=== PATIENT | male | born 1955 | race Caucasian/White ===

== ENCOUNTER 2021-07-10 06:37 | Inpatient (IN) | payer MEDICARE, OTHER ==
[~2021-07-10] VITALS: Ht 188 cm; Wt 90.3 kg
[2021-07-10] VITALS (25 sets, daily range): BP systolic 70–119; BP diastolic 50–85
[~2021-07-10 06:37] MED LIST: AMIO200T6 PO; ASPI81TA50 PO; ATORVASTATIN CA80 MG PO; CHOL100013 PO; DIGO125T3 PO; FURO40TA4 PO; LOSA-73 PO; METO100T5 PO; OMEP20CA16 PO; PRAS10TA9 PO; SACU1TAB4 PO; SERT-268 PO; SPIR25TA5 PO
[2021-07-10] MEDS ORDERED: POLYVINYL ALCOHOL 1.4% OPHTH SOLUTION 15ML BOTTLE. OU PRN (09:15)
[2021-07-10 09:32] LABS: BASE EXCESS COOX -8 mmol/L (-3-3); HCO3 COOX 20 mmol/L (21-28); METHEMOGLOBIN 0.2 % (0.0-1.9); OXYHEMOGLOBIN 95.7 %; PCO2 COOX 50 mmHg (35-46); PO2 COOX 102 mmHg (65-108); SAT O2 COOX 96 % (92-99)
[2021-07-10] MEDS: MIDAZOLAM 100mg/100ml NS BAG 100 ML IV PRN ×2 (09:47→16:51)
--- NOTE | 2021-07-10 09:49 | RAD ---
XR CHEST 1V History: Reason: ETT PLACEMENT / Spl. Instructions: / History: Comparison: June 24, 2021 Findings: Increased diffuse pulmonary opacities with interstitial thickening. Layering bilateral pleural effusi ons. Enlarged cardiac size. No pneumothorax. Endotracheal tube 4.5 cm above the andrae. Enteric tube with tip below the diaphragm beyond the image . Left-sided pacemaker/ICD. Impression: 1. Increased diffuse pulmonary opacities with interstitial thickening, may represent pulmonary edema or infection. 2. Bilateral layering pleural effusions. 3. Interval intubation and placement of enteric tube. Electronically signed by: Jonathan Smith DO (07/10/2021 9:46 AM) [id number]
--- NOTE | 2021-07-10 09:50 | RAD ---
XR ABDOMEN 1V History: Reason: OG placement / Spl. Instructions: / History: Technique: Supine view the abdomen. Comparison: June 25, 2021 Findings: Enteric tube looped within the region of the gastric fundus. Mild gaseous distention of the stomach. Minimal small bowel gas. Air and stool throughout the colon. Lower lumbar spondylosis. Vascular calci fications. Impression: 1. Enteric tube looped within the region of the gastric fundus. Electronically signed by: Jonathan Smith DO (07/10/2021 9:48 AM) [id number]
[2021-07-10] MEDS: PROPOFOL 100 ML IV PRN (10:12)
--- NOTE | 2021-07-10 10:13 | PDOC1 ---
History and Physical Date of Admission Date of Admission DATE: 07/10/21 TIME: 10:12 Identification/Chief Complaint Chief Complaint Respiratory failure Source Source: Chart review History of Present Illness History of Present Illness Patient is a 65-year-old male with past medical history systolic CHF, recent COVID-19, recent NSTEMI, who presents as a transfer from [facility] ER due to acute respiratory distress. Patient was recently discharged 10 days ago after being treated inpatient for NSTEMI and COVID-19 pneumonia. At that time he had cardiac catheterization that showed severe three-vessel karen nary artery disease with culprit lesion from the acute stent thrombosis of the distal RCA stent. He was treated with successful angioplasty of distal RCA stent, and was subsequently found to be COVID-19 positive. After he recovered from COVID-19 he was discharged home with [place] home health. Last night he presented to [facility] ER in respiratory distress. EMS has been contacted to his place of residence and upon arrival patient was in acute respiratory distress saturating in the 70s. He was placed on BiPAP but continued to decline from respiratory standpoint requiring intubation. Labs on admission from [facility] ER showed WBC 12.7, hemoglobin 11.8, hematocrit 37.6, creatinine 1.7, CBG 331, troponin 0.069, BNP 14,201, albumin 2.8. EKG with multiple abnormalities but no STEMI. Chest x-ray showed significant bilateral multifocal opacities suggestive of edema versus infection. Blood cultures were taken and he received IV fluids, and broad-spectrum IV antibiotics. He was transferred to [facility] for further medical management. Past Medical History Past Medical History CAD, CHF, HTN, HLD, [place], COPD/bronchitis, CKD, pulmonary hypertension Past Surgical History Past Surgical History Pacemaker/AICD, PCI Past Surgical History: Other Family History Family History CAD, HLD, HTN Social History Smoke: Quit ALCOHOL: rare Drugs: None Current Medications Current Medications Current Medications Fentanyl Citrate 30 ml @ 0 mls/hr CONT PRN IV SEE PROTOCOL Last administered on 07/10/21at 09:34; Start 07/10/21 at 09:15 Glycerin/ Hypromellose/ Polyethylene (Artificial Tears) 1 drop PRN Q1HR PRN OU DRY EYE; Start 07/10/21 at 09:15 Midazolam HCl 100 ml @ 0 mls/hr CONT PRN IV SEE PROTOCOL Last administered on 07/10/21at 09:47; Start 07/10/21 at 09:15 Propofol 100 ml @ 2.763 mls/ hr CONT PRN IV PER PROTOCOL; Start 07/10/21 at 10:15; Status UNV Active Scripts Active Effient (Prasugrel Hcl) 10 Mg Tablet 10 Mg PO DAILY 30 Days Effient (Prasugrel Hcl) 10 Mg Tablet 1 Tab PO DAILY 30 Days Furosemide 40 Mg Tablet 40 Mg PO DAILY 30 Days Amiodarone Hcl 200 Mg Tablet 400 Mg PO DAILY 30 Days Reported Entresto 97 mg-103 mg Tablet (Sacubitril/Valsartan) 1 Each Tablet 1 Each PO DAILY Aspir-Low (Aspirin) 81 Mg Tablet.dr 1 Tab PO DAILY Vitamin D (Cholecalciferol (Vitamin D3)) 1,000 Unit Capsule 1 Cap PO DAILY Spironolactone 25 Mg Tablet 0.5 Tab PO DAILY Sertraline Hcl 100 Mg Tablet 100 Mg PO DAILY Omeprazole 20 Mg Capsule.dr 1 Cap PO DAILY Toprol Xl (Metoprolol Succinate) 100 Mg Tab.er.24h 1 Tab PO DAILY Digoxin 125 Mcg Tablet 125 Mcg PO DAILY Atorvastatin Calcium 80 Mg Tablet 80 Mg PO HS Allergies Allergies: Coded Allergies: No Known Drug Allergies (Unverified , 06/09/21) ROS Review of System Unable to obtain due to patient's clinical condition Physical Exam Physical Exam General: Intubated and sedated on ventilator HEENT: PERRLA Lungs: Breathing on ventilator, bilateral rails Heart: RRR, no murmurs Cardiovascular: S1, S2 Abdomen: Normal bowel sounds, Soft, No tenderness Extremities: No clubbing, No cyanosis Skin: No rashes, No significant lesion Neuro: Sedated, normal tone Psych/Mental Status: Sedated Vitals Vitals Vital Signs Date Time Temp Pulse Resp B/P (MAP) Pulse Ox O2 Delivery O2 Flow Rate FiO2 07/10/21 09:37 Ventilator 07/10/21 09:34 26 100 Labs Labs Laboratory Tests Test 07/10/21 09:25 O2 Saturation 96 % (92-99) Arterial Blood pH 7.22 (7.35-7.45) Arterial Blood pCO2 at Patient Temp 50 mmHg (35-46) Arterial Blood pO2 at Patient Temp 102 mmHg (65-108) Arterial Blood HCO3 20 mmol/L (21-28) Arterial Blood Base Excess -8 mmol/L (-3-3) Oxyhemoglobin 95.7 % Methemoglobin 0.2 % (0.0-1.9) Carbon Monoxide, Quantitative 0.3 % (0.0-1.9) FiO2 100 Laboratory Tests Test 07/10/21 09:25 O2 Saturation 96 % (92-99) Arterial Blood pH 7.22 (7.35-7.45) Arterial Blood pCO2 at Patient Temp 50 mmHg (35-46) Arterial Blood pO2 at Patient Temp 102 mmHg (65-108) Arterial Blood HCO3 20 mmol/L (21-28) Arterial Blood Base Excess -8 mmol/L (-3-3) Oxyhemoglobin 95.7 % Methemoglobin 0.2 % (0.0-1.9) Carbon Monoxide, Quantitative 0.3 % (0.0-1.9) FiO2 100 Images Images PATIENT: ISSAC NORIEGA ACCOUNT: [id number] : 1955 LOCATION: [facility] ICU AGE: 65 SEX: M EXAM STATUS: ADM IN ORD. PHYSICIAN: CATA DOUGLAS MD REASON: ETT PLACEMENT PROCEDURE: PORTABLE CHEST 1V XR CHEST 1V History: Reason: ETT PLACEMENT / Spl. Instructions: / History: Comparison: June 24, 2021 Findings: Increased diffuse pulmonary opacities with interstitial thickening. Layering bilateral pleural effusions. Enlarged cardiac size. No pneumothorax. Endotracheal tube 4.5 cm above the andrae. Enteric tube with tip below the diaphragm beyond the image. Left-sided pacemaker/ICD. Impression: 1. Increased diffuse pulmonary opacities with interstitial thickening, may represent pulmonary edema or infection. 2. Bilateral layering pleural effusions. 3. Interval intubation and placement of enteric tube. VTE Prophylaxis Ordered VTE Prophylaxis Devices: Yes VTE Pharmacological Prophylaxi: Yes Assessment/Plan Assessment/Plan Sepsis Acute respiratory failure with hypoxia Hospital-acquired pneumonia due to gram-positive or possible gram-negative organism Recent NSTEMI s/p cardiac cath with stent Systolic CHF exacerbation DM2 with hyperglycemia Pulmonary hypertension S/p COVID-19 pneumonia - recovered Plan: Admitted to ICU intubated on ventilator Consultation placed to pulmonology Basic lab work pending, including CRP, procalcitonin. Will cover for HAP with cefepime and Vancomycin; MRSA PCR pending, de-escalate vancomycin if MRSA negative. Diuresis with Lasix Renal function from 06/30/2021 showed creatinine 1.4, EGFR 50.9 Provide gentle IV fluids; hold ZACH-I for now. Will initiate vasopressors if unable to sustain MAP above 65 mmHg Basal insulin with HDSS; hemoglobin A1c pending. FEN - NPO PPX - Heparin FULL CODE Dispo - inpatient for above No surrogate decision maker named at this time due to clinical condition 32 minutes critical care time spent reviewing charts, reviewing labs, reviewing imaging, discussion with RN. Justifications for Admission Other Justification ELMER MARTIN MD Jul 10, 2021 10:13
--- NOTE | 2021-07-10 10:19 | CONS ---
DATE OF CONSULTATION: 07/10/2021 REASON FOR CONSULTATION: I was asked to see this 65-year-old gentleman for acute respiratory failure. HISTORY OF PRESENT ILLNESS: The patient is currently on the ventilator and is sedated. He is not able to give me any information. All of the information was obtained from chart and nursing staff. Unfortunately, there is limited information available. He was admitted to [facility] on 06/09/2021. His rapid COVID was positive, but his PCR was negative. He was discharged on 06/30. Apparently, EMS was called because he was in respiratory distress. No details are known and placed the patient on BiPAP and transferred to [facility]. In [facility], his respiratory status got worse and he was intubated. Currently, he is on the ventilator. He is on FIO2 100%, PEEP of 5. His O2 saturation is 100%. He is tachypneic. Sedation started. PAST MEDICAL HISTORY: Coronary artery disease. He did have a V-fib arrest in his May admission. His stents were occluded. PCI was performed. He has ejection fraction of 20%. He had COPD. Positive COVID, but PCR negative. Vaccination is completed. Date is unknown. History of diastolic dysfunction. ALLERGIES: No known drug allergies. MEDICATIONS: Currently, he is on Versed and fentanyl drip. Apparently, he was on digoxin, atorvastatin, Plavix, spironolactone, metoprolol, aspirin. SOCIAL HISTORY: Unable to obtain. He is on the ventilator and sedated. FAMILY HISTORY: Unable to obtain. The patient is on the ventilator and sedated. REVIEW OF SYSTEMS: Unable to obtain secondary to the patient being on the ventilator and sedated. PHYSICAL EXAMINATION: GENERAL: Well-developed gentleman. VITAL SIGNS: His O2 saturation is 100%, FiO2 is 100%, respiratory rate 28, heart rate 88, blood pressure 110/68. HEENT: Normocephalic, atraumatic. Pupils equal, round, reactive to light. He is orally intubated. Nose is clear. NECK: Positive JVD. No lymphadenopathy or thyromegaly. CARDIOVASCULAR: Regular rate and rhythm. CHEST: Inspection, he appears tachypneic. LUNGS: There are bibasilar crackles, dullness at the bases. ABDOMEN: Soft. Bowel sounds are good. There is no mass. EXTREMITIES: There is no edema. LYMPHATICS: There is no lymphadenopathy. NEUROLOGIC: Sedated on the ventilator. LABORATORY DATA: I reviewed the following lab data: Portable chest x-ray shows ET tube was in good position. NG tube is in good position. There is bilateral infiltrate, effusion and atelectasis, right more than left. Cardiomegaly. At [facility], sodium 140, potassium 3.8, chloride 107, CO2 22, BUN 13, creatinine 1.7, glucose 331, calcium 8, magnesium 2, total bilirubin 0.3, AST 22, ALT 17, alkaline phosphatase 85. Troponin 0.069. BNP 14,201, total protein 6.2, albumin 2.8. IMPRESSION: 1. Acute respiratory failure secondary to acute systolic and diastolic congestive heart failure, rule out pneumonia, aspiration. 2. Abnormal chest x-ray. 3. Acute systolic and diastolic congestive heart failure. 4. Coronary artery disease. 5. Question maria guadalupe pneumonia, aspiration. 6. Acute kidney injury. 7. His rapid COVID testing at [facility] was negative. We will do a PCR. 8. History of ventricular fibrillation arrest on 06/09/2021, status post percutaneous coronary intervention. 9. Cardiomyopathy with ejection fraction 20%. 10. Secondary pulmonary hypertension due to acute systolic and diastolic congestive heart failure. 11. Chronic obstructive pulmonary disease. PLAN AND RECOMMENDATIONS: 1. Titrate FiO2 to keep O2 saturation 94%. 2. Change vent setting to assist control, rate of 28, tidal volume of 450, FiO2 100%, PEEP of 5. We will do ABG and adjust vent setting per ABG. 3. Stat portable chest x-ray was done. ET tube is in good position. 4. Cardiology is consulted. 5. Sputum for Gram stain and culture. Consider adding Zosyn. 6. I do recommend Lasix. Monitor potassium and creatinine. 7. COVID PCR 8. Lovenox for DVT prophylaxis. 9. Pepcid for stress ulcer prophylaxis. 10. We will monitor respiratory status very closely. 11. The findings and recommendations were discussed with RN and RT. Thank you very much for allowing me to participate in care of this very nice gentleman. LIDIA DR: Raegan TID: [id number]
[2021-07-10] MEDS ORDERED: IV NORMAL SALINE 1000ML BAG 1,000 ML IV ONE (11:15)
[2021-07-10] MEDS ORDERED: IV NORMAL SALINE 500ML BAG 500 ML IV PRN (11:15)
[2021-07-10] MEDS ORDERED: ATROPINE 0.5 MG/5 ML DISP.SYRINGE. IV PRN (11:15)
[2021-07-10] MEDS ORDERED: FUROSEMIDE 40 MG/4 ML VIAL. IVP ONE ×2 (11:15→16:15)
[2021-07-10] MEDS ORDERED: VANCOMYCIN PER PHARMACY MC PRN (11:30)
[2021-07-10] MEDS ORDERED: DEXTROSE 50% 25 GM / 50ML DISP.SYRIN. IV PRN (11:30)
[2021-07-10] MEDS ORDERED: hydrALAZINE 20 MG/ML VIAL. IVP PRN (11:30)
[2021-07-10] MEDS ORDERED: FUROSEMIDE 20 MG/2 ML VIAL. IVP SCH (11:30)
[2021-07-10] MEDS: DEXMEDETOMIDINE 400 MCG in IV NORMAL SALINE 100ML 96 ML IV PRN (11:38)
[2021-07-10] MEDS ORDERED: 0.9 % SODIUM CHLORIDE 10 ML DISP.SYRIN. IV PRN (11:45)
[2021-07-10] MEDS ORDERED: MAG HYDROX/ALUMINUM HYD/SIMETH 30 ML ORAL.SUSP PO PRN (11:45)
[2021-07-10] MEDS ORDERED: ZOLPIDEM 5 MG TABLET. PO PRN (11:45)
[2021-07-10] MEDS ORDERED: fentaNYL PF VIAL 100 MCG/2 ML VIAL IV PRN (11:45)
[2021-07-10] MEDS ORDERED: MORPHINE SULFATE 2 MG/ML INJ. IV PRN (11:45)
[2021-07-10] MEDS ORDERED: ONDANSETRON PF 4 MG/2 ML VIAL. IVP PRN (11:45)
[2021-07-10] MEDS ORDERED: ACETAMINOPHEN 325 MG TABLET. PO PRN (11:45)
[2021-07-10] MEDS ORDERED: CALCIUM CARBONATE 500 MG TAB.CHEW PO PRN (11:45)
[2021-07-10] MEDS ORDERED: MAGNESIUM HYDROXIDE 2,400 MG/30 ML ORAL.SUSP. PO PRN (11:45)
[2021-07-10] MEDS: CEFEPIME HCL IV Push 2 GM VIAL. IVP SCH ×2 (12:00→20:33)
[2021-07-10] MEDS: PRASUGREL 10 MG TABLET. PO SCH (12:00)
[2021-07-10] MEDS: METOPROLOL TART IMMED RELEASE 50 MG TABLET. PO SCH ×2 (12:00→20:09)
[2021-07-10] MEDS: INSULIN LISPRO 300 UNITS/3 ML VIAL. SQ SCH ×2 (12:00→18:00)
[2021-07-10] MEDS ORDERED: FUROSEMIDE 40 MG TABLET. PO SCH (12:00)
[2021-07-10] MEDS ORDERED: SPIRONOLACTONE 25 MG TABLET PO SCH (12:00)
[2021-07-10] MEDS: ENOXAPARIN 40 MG/0.4 ML SYRINGE. SQ SCH (12:00)
[2021-07-10] MEDS: ASPIRIN CHEWABLE 81 MG TABLET. PO SCH (12:00)
[2021-07-10] MEDS: DIGOXIN 125 MCG TABLET. PO SCH (12:01)
[2021-07-10] MEDS: AMIODARONE HCL 200 MG TABLET. PO SCH (12:01)
[2021-07-10] MEDS: PANTOPRAZOLE IV PUSH 40 MG VIAL. IVP SCH (12:01)
[2021-07-10 12:02] LABS: BASO # 0.1 x10^3/uL (0.0-0.2); BASO % 1 % (0-3); EOS % 0 % (0-3); HEMATOCRIT 38.3 % (39.0-53.0); HEMOGLOBIN 12.4 g/dL (13.0-17.5); LYMPH # 0.3 x10^3/uL (1.0-4.8); LYMPH % 3 % (24-48); MEAN CORPUSCULAR HEMOGLOBIN 31 pg (25-35); MEAN CORPUSCULAR HGB CONC 32 g/dL (31-37); MEAN CORPUSCULAR VOLUME 96 fL (79-100); MONO # 0.4 x10^3/uL (0.0-1.1); MONO % 4 % (0-9); NEUT # 10.1 x10^3/uL (1.8-7.7); NEUT % 93 % (31-73); PLATELET COUNT 193 x10^3/uL (140-400); RED BLOOD COUNT 3.98 x10^6/uL (4.30-5.70); RED CELL DISTRIBUTION WIDTH 16.1 % (11.5-14.5); WHITE BLOOD COUNT 10.8 x10^3/uL (4.0-11.0)
[2021-07-10] MEDS: INSULIN GLARGINE SYRINGE. SQ SCH ×2 (12:02→20:34)
[2021-07-10 12:21] LABS: ALBUMIN 2.7 g/dL (3.4-5.0); ALBUMIN/GLOBULIN RATIO 0.8 (1.0-1.7); CALCIUM 8.5 mg/dL (8.5-10.1); CREATININE 1.8 mg/dL (0.7-1.3); GFR 38.1; POTASSIUM 4.7 mmol/L (3.5-5.1); TOTAL BILIRUBIN 0.2 mg/dL (0.2-1.0); TOTAL PROTEIN 6.1 g/dL (6.4-8.2)
[2021-07-10] MEDS: NOREPINEPHRINE VIAL 8 MG in IV DEXTROSE 5% 250 ML IV PRN (12:39)
[2021-07-10 12:53] LABS: % BANDS 2 % (0-9); % LYMPHS 2 % (24-48); % MONOS 4 % (0-10); % SEGS 92 % (35-66)
[2021-07-10 12:54] LABS: PLT ESTIMATE ADEQUATE (ADEQUATE)
--- NOTE | 2021-07-10 14:44 | RAD ---
XR CHEST 1V Clinical History: Reason: Central line placement / Spl. Instructions: / History: Technique: AP view of the chest was obtained at 07/10/2021 2:26 PM. Comparison: 9:27 AM. Findings: The heart is borderline enlarged. The pulmonary vessels are top normal limits in size. There is patch y opacity in the mid and lower lungs right worse than left and obscuration of the diaphragm. The endotracheal tube and enteric tube and left sided defibrillator again seen. There has been interv al placement of a right jugular line which has its tip directed downward in the mid SVC. Impression: 1. Right jugular line well-positioned. No pneumothorax. 2. Moderate right effusion and bilateral pulmonary infiltrates unchanged. Electronically signed by: Ahmet Alcaraz III, MD (07/10/2021 2:41 PM) [facility]
--- NOTE | 2021-07-10 14:54 | PDOC ---
Provider Note Date of Service: DATE: 07/10/21 TIME: 14:49 Provider Note Anesthesiology Asked to place a TLC in pt. with Covid-19 Respiratory Failure on vent. Consent prev. obtained. Right IJ TLC placed in usual sterile fashion with ultrasound guidance. Pt. tolerated well. VSS throughout procedure. Cath. sutured in place and sterile dressing applied. CXR pending to confirm location. Landry Tobin MD Justifications for Admission Other Justification LIZA TOBIN MD Jul 10, 2021 14:54
--- NOTE | 2021-07-10 15:52 | PDOC2 ---
CARDIOLOGY CONSULT NOTE DATE OF SERVICE: DATE: 07/10/21 TIME: 15:39 CHIEF COMPLAINT: Worsening shortness of breath HPI: Mr. Rebolledo is well-known to our service. He was recently discharged after complex prolonged hospital course in the setting of a inferior ST elevation PR. He underwent balloon angioplasty of previous stent occlusion and was also diagnosed with coronavirus. Ultimately he was discharged but unfortunately returned back to the hospital fairly quickly and at this time appears to be related to a possible pneumonia. He was found to have silent aspiration on his swallow study prior to discharge and [place] [facility] [place] found to have significant tachypnea and was intubated and transferred to [place] for further evaluation and treatment. He is currently sedated and his chest x-ray also suggest some underlying heart failure PMHX: 1. Coronary artery disease status post multivessel stenting in the past with recent balloon angioplasty of the RCA for in-stent thrombosis 2. Status post dual-chamber ICD 3. Hypertension 4. Dyslipidemia SOCHX: No alcohol, tobacco or illicit drug use. He is usually followed through the [facility] FAMHX: Noncontributory CURRENT MEDS: Current Medications Medications (Trade) Dose Ordered Sig/Asia Route PRN Reason Start Time Stop Time Status Last Admin Dose Admin Fentanyl Citrate 30 ml @ 0 mls/hr CONT PRN IV SEE PROTOCOL 07/10/21 09:15 07/10/21 13:42 Midazolam HCl 100 ml @ 0 mls/hr CONT PRN IV SEE PROTOCOL 07/10/21 09:15 07/10/21 09:47 Propofol 100 ml @ 2.763 mls/ hr CONT PRN IV PER PROTOCOL 07/10/21 10:15 07/10/21 10:12 Amiodarone HCl (Cordarone) 400 mg DAILY PO 07/10/21 12:00 07/10/21 12:01 Aspirin (Aspirin Chewable) 81 mg DAILYWBKFT PO 07/10/21 12:00 07/10/21 12:00 Digoxin (Lanoxin) 125 mcg DAILY PO 07/10/21 12:00 07/10/21 12:01 Prasugrel (Effient) 10 mg DAILY PO 07/10/21 12:00 07/10/21 12:00 Pantoprazole Sodium (PROTONIX VIAL for IV PUSH) 40 mg DAILYAC IVP 07/10/21 12:00 07/10/21 12:01 Dexmedetomidine HCl 400 mcg/ Sodium Chloride 100 ml @ 0 mls/hr CONT PRN IV PER PROTOCOL 07/10/21 11:15 07/10/21 11:38 Furosemide (Lasix) 40 mg 1X ONCE IVP 07/10/21 11:15 07/10/21 11:16 DC 07/10/21 12:00 Sodium Chloride 1,000 ml @ 50 mls/hr 1X ONCE IV 07/10/21 11:15 07/11/21 07:14 07/10/21 12:02 Insulin Glargine (Lantus Syringe) 10 unit BID SQ 07/10/21 12:00 07/10/21 12:02 Cefepime HCl (Maxipime) 2 gm Q12HR IVP 07/10/21 12:00 07/10/21 12:00 Norepinephrine Bitartrate 8 mg/ Dextrose 258 ml @ 8.911 mls/ hr CONT PRN IV PER PROTOCOL 07/10/21 11:30 07/10/21 12:39 Enoxaparin Sodium (Lovenox 40mg Syringe) 40 mg Q24H SQ 07/10/21 12:00 07/10/21 12:00 Linezolid/Dextrose 300 ml @ 300 mls/hr Q12HR IV 07/10/21 12:00 07/10/21 12:47 ALLERGIES: Allergies Coded Allergies Type Severity Reaction Last Updated Verified No Known Drug Allergies 06/09/21 No ROS: Negative for 10 out of 14 systems reviewed unless otherwise mentioned above in HPI PHYSICAL EXAM: Vital Signs/I&O: Vital Signs Date Time Temp Pulse Resp B/P (MAP) Pulse Ox O2 Delivery O2 Flow Rate FiO2 07/10/21 15:15 81/60 (67) 07/10/21 15:00 78 28 97 Ventilator 07/10/21 12:00 98.4 98.4 Physical Exam: GEN.: No apparent distress. Sedated and intubated. HEENT: Head is normocephalic, atraumatic NECK: Supple. LUNGS: Decreased breath sounds throughout. HEART: RRR, S1, S2 present. Peripheral pulses intact ABDOMEN: Soft, nontender. Positive bowel sounds. EXTREMITIES: Without any cyanosis. NEUROLOGIC: Nonfocal exam PSYCHIATRIC: Deferred SKIN: No ulcerations DIAGNOSTIC TESTING: EKG reviewed it appears to be paced rhythm. No obvious arrhythmias noted CXR concerning for a mixed picture of heart failure and pna. Lab Labs reviewed. Cr elevated at 1.8 ASSESSMENT: 1. Acute on chronic systolic and diastolic HF 2. Hypotension. 3. CAD s/p PCI 4. Ischemic CMP with EF of 20% s/p dual chamber ICD 5. PAF. PLAN: 1. Based on review of his chest x-ray and overall presentation this is perhaps a mixed picture of hospital-acquired pneumonia/aspiration pneumonia versus heart failure. -Review of the chest x-ray demonstrates possible right lower lobe infiltrate with mild effusion. -We will plan for diuresis after obtaining a CVP and venous blood gas to assess his hemodynamic status. Continue aggressive medical therapy. URI CARLSON MD Jul 10, 2021 15:51
[2021-07-10] MEDS: ATORVASTATIN CALCIUM 40 MG TABLET. PO SCH (20:33)
[2021-07-10] MEDS ORDERED: FAMOTIDINE 20 MG/2 ML VIAL IVP SCH (21:00)
[2021-07-11] VITALS (24 sets, daily range): BP systolic 73–117; BP diastolic 50–81
[2021-07-11] MEDS: DEXMEDETOMIDINE 400 MCG in IV NORMAL SALINE 100ML 96 ML IV PRN ×2 (01:41→22:23)
[2021-07-11 04:23] LABS: HEMOGLOBIN A1C 5.3 % (4.8-5.6)
--- NOTE | 2021-07-11 05:50 | PDOC ---
PULMONARY PROGRESS NOTES DATE: 07/11/21 TIME: 05:46 Subjective Patient remains on vent support at 40% and a PEEP of 5 On Levophed drip No overnight concerns from nursing Vitals Vital Signs Date Time Temp Pulse Resp B/P (MAP) Pulse Ox O2 Delivery O2 Flow Rate FiO2 07/11/21 05:00 80 28 85/63 (70) 97 Ventilator 07/11/21 04:00 97.6 97.6 Comments Intubated HEENT: Other (Intubated) Lungs: Crackles Cardiovascular: S1, S2 Abdomen: Soft Extremities: No Edema Labs Laboratory Tests Test 07/10/21 09:25 07/10/21 11:45 07/10/21 13:24 07/10/21 15:50 O2 Saturation 96 % (92-99) Arterial Blood pH 7.22 (7.35-7.45) Arterial Blood pCO2 at Patient Temp 50 mmHg (35-46) Arterial Blood pO2 at Patient Temp 102 mmHg (65-108) Arterial Blood HCO3 20 mmol/L (21-28) Arterial Blood Base Excess -8 mmol/L (-3-3) Oxyhemoglobin 95.7 % Methemoglobin 0.2 % (0.0-1.9) Carbon Monoxide, Quantitative 0.3 % (0.0-1.9) FiO2 100 50 White Blood Count 10.8 x10^3/uL (4.0-11.0) Red Blood Count 3.98 x10^6/uL (4.30-5.70) Hemoglobin 12.4 g/dL (13.0-17.5) Hematocrit 38.3 % (39.0-53.0) Mean Corpuscular Volume 96 fL (79-100) Mean Corpuscular Hemoglobin 31 pg (25-35) Mean Corpuscular Hemoglobin Concent 32 g/dL (31-37) Red Cell Distribution Width 16.1 % (11.5-14.5) Platelet Count 193 x10^3/uL (140-400) Neutrophils (%) (Auto) 93 % (31-73) Lymphocytes (%) (Auto) 3 % (24-48) Monocytes (%) (Auto) 4 % (0-9) Eosinophils (%) (Auto) 0 % (0-3) Basophils (%) (Auto) 1 % (0-3) Neutrophils # (Auto) 10.1 x10^3/uL (1.8-7.7) Lymphocytes # (Auto) 0.3 x10^3/uL (1.0-4.8) Monocytes # (Auto) 0.4 x10^3/uL (0.0-1.1) Eosinophils # (Auto) 0.0 x10^3/uL (0.0-0.7) Basophils # (Auto) 0.1 x10^3/uL (0.0-0.2) Segmented Neutrophils % 92 % (35-66) Band Neutrophils % 2 % (0-9) Lymphocytes % 2 % (24-48) Monocytes % 4 % (0-10) Platelet Estimate Adequate (ADEQUATE) Sodium Level 141 mmol/L (136-145) Potassium Level 4.7 mmol/L (3.5-5.1) Chloride Level 108 mmol/L (98-107) Carbon Dioxide Level 24 mmol/L (21-32) Anion Gap 9 (6-14) Blood Urea Nitrogen 18 mg/dL (8-26) Creatinine 1.8 mg/dL (0.7-1.3) Estimated GFR (Cockcroft-Gault) 38.1 BUN/Creatinine Ratio 10 (6-20) Glucose Level 123 mg/dL (70-99) Hemoglobin A1c 5.3 % (4.8-5.6) Calcium Level 8.5 mg/dL (8.5-10.1) Total Bilirubin 0.2 mg/dL (0.2-1.0) Aspartate Amino Transf (AST/SGOT) 18 U/L (15-37) Alanine Aminotransferase (ALT/SGPT) 16 U/L (16-63) Alkaline Phosphatase 77 U/L (46-116) C-Reactive Protein, Quantitative 3.2 mg/L (0-3.3) Total Protein 6.1 g/dL (6.4-8.2) Albumin 2.7 g/dL (3.4-5.0) Albumin/Globulin Ratio 0.8 (1.0-1.7) Procalcitonin ng/mL (0.00-0.10) Glucose (Fingerstick) 152 mg/dL (70-99) Mixed Venous Blood pH 7.42 Mixed Venous Blood PCO2 35 mmHg Mixed Venous Blood PO2 42 mmHg Mixed Venous Blood HCO3 22 mmol/L Mixed Venous Blood Base Excess -2 mmol/L Mixed Venous Blood O2 Saturation 79 % Test 07/10/21 18:16 07/11/21 05:40 Glucose (Fingerstick) 127 mg/dL (70-99) 101 mg/dL (70-99) Laboratory Tests Test 07/10/21 09:25 07/10/21 11:45 07/10/21 13:24 07/10/21 15:50 O2 Saturation 96 % (92-99) Arterial Blood pH 7.22 (7.35-7.45) Arterial Blood pCO2 at Patient Temp 50 mmHg (35-46) Arterial Blood pO2 at Patient Temp 102 mmHg (65-108) Arterial Blood HCO3 20 mmol/L (21-28) Arterial Blood Base Excess -8 mmol/L (-3-3) Oxyhemoglobin 95.7 % Methemoglobin 0.2 % (0.0-1.9) Carbon Monoxide, Quantitative 0.3 % (0.0-1.9) FiO2 100 50 White Blood Count 10.8 x10^3/uL (4.0-11.0) Red Blood Count 3.98 x10^6/uL (4.30-5.70) Hemoglobin 12.4 g/dL (13.0-17.5) Hematocrit 38.3 % (39.0-53.0) Mean Corpuscular Volume 96 fL (79-100) Mean Corpuscular Hemoglobin 31 pg (25-35) Mean Corpuscular Hemoglobin Concent 32 g/dL (31-37) Red Cell Distribution Width 16.1 % (11.5-14.5) Platelet Count 193 x10^3/uL (140-400) Neutrophils (%) (Auto) 93 % (31-73) Lymphocytes (%) (Auto) 3 % (24-48) Monocytes (%) (Auto) 4 % (0-9) Eosinophils (%) (Auto) 0 % (0-3) Basophils (%) (Auto) 1 % (0-3) Neutrophils # (Auto) 10.1 x10^3/uL (1.8-7.7) Lymphocytes # (Auto) 0.3 x10^3/uL (1.0-4.8) Monocytes # (Auto) 0.4 x10^3/uL (0.0-1.1) Eosinophils # (Auto) 0.0 x10^3/uL (0.0-0.7) Basophils # (Auto) 0.1 x10^3/uL (0.0-0.2) Segmented Neutrophils % 92 % (35-66) Band Neutrophils % 2 % (0-9) Lymphocytes % 2 % (24-48) Monocytes % 4 % (0-10) Platelet Estimate Adequate (ADEQUATE) Sodium Level 141 mmol/L (136-145) Potassium Level 4.7 mmol/L (3.5-5.1) Chloride Level 108 mmol/L (98-107) Carbon Dioxide Level 24 mmol/L (21-32) Anion Gap 9 (6-14) Blood Urea Nitrogen 18 mg/dL (8-26) Creatinine 1.8 mg/dL (0.7-1.3) Estimated GFR (Cockcroft-Gault) 38.1 BUN/Creatinine Ratio 10 (6-20) Glucose Level 123 mg/dL (70-99) Hemoglobin A1c 5.3 % (4.8-5.6) Calcium Level 8.5 mg/dL (8.5-10.1) Total Bilirubin 0.2 mg/dL (0.2-1.0) Aspartate Amino Transf (AST/SGOT) 18 U/L (15-37) Alanine Aminotransferase (ALT/SGPT) 16 U/L (16-63) Alkaline Phosphatase 77 U/L (46-116) C-Reactive Protein, Quantitative 3.2 mg/L (0-3.3) Total Protein 6.1 g/dL (6.4-8.2) Albumin 2.7 g/dL (3.4-5.0) Albumin/Globulin Ratio 0.8 (1.0-1.7) Procalcitonin ng/mL (0.00-0.10) Glucose (Fingerstick) 152 mg/dL (70-99) Mixed Venous Blood pH 7.42 Mixed Venous Blood PCO2 35 mmHg Mixed Venous Blood PO2 42 mmHg Mixed Venous Blood HCO3 22 mmol/L Mixed Venous Blood Base Excess -2 mmol/L Mixed Venous Blood O2 Saturation 79 % Test 07/10/21 18:16 07/11/21 05:40 Glucose (Fingerstick) 127 mg/dL (70-99) 101 mg/dL (70-99) Medications Active Scripts Medications Dose Route/Sig Max Daily Dose Days Date Category Effient (Prasugrel Hcl) 10 Mg Tablet 10 Mg PO DAILY 30 06/29/21 Rx Effient (Prasugrel Hcl) 10 Mg Tablet 1 Tab PO DAILY 30 06/29/21 Rx Amiodarone Hcl 200 Mg Tablet 400 Mg PO DAILY 30 06/29/21 Rx Entresto 97 mg-103 mg Tablet (Sacubitril/Valsartan) 1 Each Tablet 1 Each PO DAILY 03/09/19 Reported Aspir-Low (Aspirin) 81 Mg Tablet.dr 1 Tab PO DAILY 03/09/19 Reported Vitamin D (Cholecalciferol (Vitamin D3)) 1,000 Unit Capsule 1 Cap PO DAILY 03/09/19 Reported Spironolactone 25 Mg Tablet 0.5 Tab PO DAILY 03/09/19 Reported Sertraline Hcl 100 Mg Tablet 100 Mg PO DAILY 03/09/19 Reported Omeprazole 20 Mg Capsule.dr 1 Cap PO DAILY 03/09/19 Reported Toprol Xl (Metoprolol Succinate) 100 Mg Tab.er.24h 1 Tab PO DAILY 03/09/19 Reported Digoxin 125 Mcg Tablet 125 Mcg PO DAILY 03/09/19 Reported Atorvastatin Calcium 80 Mg Tablet 80 Mg PO HS 03/09/19 Reported Impression . IMPRESSION: 1. Acute respiratory failure secondary to acute systolic and diastolic congestive heart failure, rule out pneumonia, aspiration. 2. Abnormal chest x-ray. 3. Acute systolic and diastolic congestive heart failure. 4. Coronary artery disease. 5. Question maria guadalupe pneumonia, aspiration. 6. Acute kidney injuryon CKD baseline cr. 1.4 7. His rapid COVID testing at [facility] was negative. 8. History of ventricular fibrillation arrest on 06/09/2021, status post percutaneous coronary intervention to RCA 9. Cardiomyopathy with ejection fraction 20%. 10. Secondary pulmonary hypertension due to acute systolic and diastolic congestive heart failure. 11. Chronic obstructive pulmonary disease. Plan . Updated 07/11/2021 Continue current ventilatory support, 28/450/40/5 Follow chest x-ray/ABG make changes as needed Follow cardiology recommendations, EF 20%, status post recent UT with PCI to RCA, Ongoing diuresis, monitor renal function Continue empiric antibiotics, currently on Zyvox Continue vasopressor medications to keep MAP greater than 65 Nutritional support DVT/GI prophylaxis: Lovenox Discussed with RN and RT addend: Pt did better with CPAP trial in the afternoon. ABG adequate. Following commands .Will proceed with extubation. Message left for . CC time 30 minutes ANALISA MCKEON MD Jul 11, 2021 05:50
[2021-07-11] MEDS: INSULIN LISPRO 300 UNITS/3 ML VIAL. SQ SCH ×4 (06:00→18:00)
[2021-07-11 06:16] LABS: CALCIUM 8.3 mg/dL (8.5-10.1); CREATININE 1.6 mg/dL (0.7-1.3); GFR 43.6; POTASSIUM 4.2 mmol/L (3.5-5.1)
[2021-07-11 06:23] LABS: BASO % 0 % (0-3); EOS % 0 % (0-3); HEMATOCRIT 30.3 % (39.0-53.0); HEMOGLOBIN 10.4 g/dL (13.0-17.5); LYMPH # 0.8 x10^3/uL (1.0-4.8); LYMPH % 8 % (24-48); MEAN CORPUSCULAR HEMOGLOBIN 32 pg (25-35); MEAN CORPUSCULAR HGB CONC 34 g/dL (31-37); MEAN CORPUSCULAR VOLUME 92 fL (79-100); MONO # 0.9 x10^3/uL (0.0-1.1); MONO % 9 % (0-9); NEUT # 8.6 x10^3/uL (1.8-7.7); NEUT % 84 % (31-73); PLATELET COUNT 175 x10^3/uL (140-400); RED CELL DISTRIBUTION WIDTH 15.5 % (11.5-14.5); WHITE BLOOD COUNT 10.2 x10^3/uL (4.0-11.0)
--- NOTE | 2021-07-11 07:06 | RAD ---
EXAMINATION: Chest radiograph. VIEWS: Single view COMPARISON: 07/10/2021 INDICATION:65 years, Male, respiratory failure. FINDINGS: Bibasilar lungs are off image. Stable mild cardiomegaly. Similar right worst than left, basilar patch y airspace opacities. No pneumothorax. No acute osseous process. Endotracheal tube tip locates approximately 3.9 cm proximal to the andrae. Enteric tube tip is off im age, presumably in the stomach. Right IJ central venous catheter in left chest wall pacemaker leads a re unchanged. IMPRESSION: No significant changes since earlier exam. Electronically signed by: Chanelle Michaels MD (07/11/2021 7:04 AM) [facility]
[2021-07-11 07:36] LABS: BASE EXCESS ABG -2 mmol/L (-3-3); FIO2 ABG 40/VENT; HCO3 ABG 21 mmol/L (21-28); PCO2 ABG 31 mmHg (35-46); PO2 ABG 82 mmHg (65-108); SAT O2 ABG 95 % (92-99)
[2021-07-11] MEDS: ELECTROLYTE (ICU) PROTOCOL. MC SCH (09:00)
[2021-07-11] MEDS: METOPROLOL TART IMMED RELEASE 50 MG TABLET. PO SCH ×2 (09:00→19:52)
[2021-07-11] MEDS: INSULIN GLARGINE SYRINGE. SQ SCH ×2 (09:00→19:53)
[2021-07-11] MEDS: PANTOPRAZOLE IV PUSH 40 MG VIAL. IVP SCH (10:46)
[2021-07-11] MEDS: ASPIRIN CHEWABLE 81 MG TABLET. PO SCH (10:47)
--- NOTE | 2021-07-11 10:51 | PDOC ---
REJI SILVA MOLD SETTER 07/11/21 1051: CARDIO Progress Notes Date and Time Date of Service 07/11/21 Time of Evaluation 1120 Subjective Subjective: Other (intubated ) Vitals Vitals Vital Signs Date Time Temp Pulse Resp B/P (MAP) Pulse Ox O2 Delivery O2 Flow Rate FiO2 07/11/21 10:02 97 Ventilator 07/11/21 08:00 78 28 89/68 (75) 07/11/21 04:00 97.6 97.6 Weight Weight [ ] Input and Output Intake and Output Intake and Output 07/11/21 07:00 Intake Total 2478.8 ml Output Total 1830 ml Balance 648.8 ml Intake IV Total 2448.8 ml Tube Feeding 30 ml Output Urine Total 1830 ml Laboratory Labs Laboratory Tests Test 07/10/21 11:45 07/10/21 13:24 07/10/21 15:50 07/10/21 18:16 White Blood Count 10.8 x10^3/uL (4.0-11.0) Red Blood Count 3.98 x10^6/uL (4.30-5.70) Hemoglobin 12.4 g/dL (13.0-17.5) Hematocrit 38.3 % (39.0-53.0) Mean Corpuscular Volume 96 fL (79-100) Mean Corpuscular Hemoglobin 31 pg (25-35) Mean Corpuscular Hemoglobin Concent 32 g/dL (31-37) Red Cell Distribution Width 16.1 % (11.5-14.5) Platelet Count 193 x10^3/uL (140-400) Neutrophils (%) (Auto) 93 % (31-73) Lymphocytes (%) (Auto) 3 % (24-48) Monocytes (%) (Auto) 4 % (0-9) Eosinophils (%) (Auto) 0 % (0-3) Basophils (%) (Auto) 1 % (0-3) Neutrophils # (Auto) 10.1 x10^3/uL (1.8-7.7) Lymphocytes # (Auto) 0.3 x10^3/uL (1.0-4.8) Monocytes # (Auto) 0.4 x10^3/uL (0.0-1.1) Eosinophils # (Auto) 0.0 x10^3/uL (0.0-0.7) Basophils # (Auto) 0.1 x10^3/uL (0.0-0.2) Segmented Neutrophils % 92 % (35-66) Band Neutrophils % 2 % (0-9) Lymphocytes % 2 % (24-48) Monocytes % 4 % (0-10) Platelet Estimate Adequate (ADEQUATE) Sodium Level 141 mmol/L (136-145) Potassium Level 4.7 mmol/L (3.5-5.1) Chloride Level 108 mmol/L (98-107) Carbon Dioxide Level 24 mmol/L (21-32) Anion Gap 9 (6-14) Blood Urea Nitrogen 18 mg/dL (8-26) Creatinine 1.8 mg/dL (0.7-1.3) Estimated GFR (Cockcroft-Gault) 38.1 BUN/Creatinine Ratio 10 (6-20) Glucose Level 123 mg/dL (70-99) Hemoglobin A1c 5.3 % (4.8-5.6) Calcium Level 8.5 mg/dL (8.5-10.1) Total Bilirubin 0.2 mg/dL (0.2-1.0) Aspartate Amino Transf (AST/SGOT) 18 U/L (15-37) Alanine Aminotransferase (ALT/SGPT) 16 U/L (16-63) Alkaline Phosphatase 77 U/L (46-116) C-Reactive Protein, Quantitative 3.2 mg/L (0-3.3) Total Protein 6.1 g/dL (6.4-8.2) Albumin 2.7 g/dL (3.4-5.0) Albumin/Globulin Ratio 0.8 (1.0-1.7) Procalcitonin ng/mL (0.00-0.10) Glucose (Fingerstick) 152 mg/dL (70-99) 127 mg/dL (70-99) Mixed Venous Blood pH 7.42 Mixed Venous Blood PCO2 35 mmHg Mixed Venous Blood PO2 42 mmHg Mixed Venous Blood HCO3 22 mmol/L Mixed Venous Blood Base Excess -2 mmol/L Mixed Venous Blood O2 Saturation 79 % FiO2 50 Test 07/11/21 05:40 07/11/21 05:45 07/11/21 07:30 Glucose (Fingerstick) 101 mg/dL (70-99) White Blood Count 10.2 x10^3/uL (4.0-11.0) Red Blood Count 3.30 x10^6/uL (4.30-5.70) Hemoglobin 10.4 g/dL (13.0-17.5) Hematocrit 30.3 % (39.0-53.0) Mean Corpuscular Volume 92 fL (79-100) Mean Corpuscular Hemoglobin 32 pg (25-35) Mean Corpuscular Hemoglobin Concent 34 g/dL (31-37) Red Cell Distribution Width 15.5 % (11.5-14.5) Platelet Count 175 x10^3/uL (140-400) Neutrophils (%) (Auto) 84 % (31-73) Lymphocytes (%) (Auto) 8 % (24-48) Monocytes (%) (Auto) 9 % (0-9) Eosinophils (%) (Auto) 0 % (0-3) Basophils (%) (Auto) 0 % (0-3) Neutrophils # (Auto) 8.6 x10^3/uL (1.8-7.7) Lymphocytes # (Auto) 0.8 x10^3/uL (1.0-4.8) Monocytes # (Auto) 0.9 x10^3/uL (0.0-1.1) Eosinophils # (Auto) 0.0 x10^3/uL (0.0-0.7) Basophils # (Auto) 0.0 x10^3/uL (0.0-0.2) Sodium Level 143 mmol/L (136-145) Potassium Level 4.2 mmol/L (3.5-5.1) Chloride Level 107 mmol/L (98-107) Carbon Dioxide Level 27 mmol/L (21-32) Anion Gap 9 (6-14) Blood Urea Nitrogen 20 mg/dL (8-26) Creatinine 1.6 mg/dL (0.7-1.3) Estimated GFR (Cockcroft-Gault) 43.6 Glucose Level 105 mg/dL (70-99) Calcium Level 8.3 mg/dL (8.5-10.1) O2 Saturation 95 % (92-99) Arterial Blood pH 7.46 (7.35-7.45) Arterial Blood pCO2 at Patient Temp 31 mmHg (35-46) Arterial Blood pO2 at Patient Temp 82 mmHg (65-108) Arterial Blood HCO3 21 mmol/L (21-28) Arterial Blood Base Excess -2 mmol/L (-3-3) FiO2 40/vent Physical Exam HEENT: Neck Supple W Full Motion Chest: Symmetric LUNGS: Other (MV) Heart: RRR Abdomen: Other (non-distended) Extremities: No Edema Neurology: other (sedated) Assessment Assessment 1. Acute on chronic respiratory failure; multifactorial with CHF and PNA. ? aspiration. s/p intubation 2 Acute on chronic systolic and diastolic HF 3. Hypotension; requiring pressor support 4. CAD s/p PCI/stent to LAD and RCA; S/p recent PTCA to ISR of distal RCA stents 5. ICM; LVEF 20%. s/p AICD ([employer]). Follows with [facility], Dr Gregory 6. PAF; on Amiodarone for rhythm maintenance 7. Recent VFIB arrest 8. REYNALDO on CKD 9. PUI: COVID pendinh. Tested + 06/09/21 Recommendations Secondary prevention DAPT with ASA/Effient therapy. High-dose statin HF optimization with Aldactone, Lasix . Monitor renal function Hold metoprolol with hypotension Dig for rate control Continue Amiodarone for rhythm maintenance Ongonig lung optimization, treatment of PNA Justicifation of Admission Dx: Justifications for Admission: Justification of Admission Dx: Yes URI CARLSON MD 07/11/21 7607: CARDIO Progress Notes Plan Plan The patient was seen and interviewed as well as examined at the bedside. The chart was reviewed. The case was discussed. Agree with the plan of care. REJI SILVA APRN Jul 11, 2021 10:51 URI CARLSON MD Jul 11, 2021 17:57
[2021-07-11] MEDS: CEFEPIME HCL IV Push 2 GM VIAL. IVP SCH ×2 (10:52→20:00)
[2021-07-11] MEDS: FUROSEMIDE 20 MG/2 ML VIAL. IVP SCH (10:52)
[2021-07-11] MEDS: SPIRONOLACTONE 25 MG TABLET PO SCH (10:54)
[2021-07-11] MEDS: PRASUGREL 10 MG TABLET. PO SCH (10:55)
[2021-07-11] MEDS: DIGOXIN 125 MCG TABLET. PO SCH (10:55)
[2021-07-11] MEDS: AMIODARONE HCL 200 MG TABLET. PO SCH (10:57)
[2021-07-11] MEDS: ENOXAPARIN 40 MG/0.4 ML SYRINGE. SQ SCH (10:58)
[2021-07-11] MEDS: NOREPINEPHRINE VIAL 8 MG in IV DEXTROSE 5% 250 ML IV PRN (11:01)
--- NOTE | 2021-07-11 12:59 | NUR ---
Placed patient on SBT, however patient's breathing was irregular. Placed back on AC. Will attempt again after patient is more alert.
--- NOTE | 2021-07-11 13:26 | PDOC ---
[employer] PROGRESS NOTE Date of Service DOS: DATE: 07/11/21 TIME: 13:20 Chief Complaint Chief Complaint Sepsis Acute respiratory failure with hypoxia Hospital-acquired pneumonia due to gram-positive or possible gram-negative organism Recent NSTEMI s/p cardiac cath with stent Systolic CHF exacerbation DM2 with hyperglycemia Pulmonary hypertension S/p COVID-19 pneumonia - recovered Plan: Admitted to ICU intubated on ventilator Consultation placed to pulmonology Basic lab work pending, including CRP, procalcitonin. Will cover for HAP with cefepime and Vancomycin; MRSA PCR pending, de-escalate vancomycin if MRSA negative. Diuresis with Lasix Renal function from 06/30/2021 showed creatinine 1.4, EGFR 50.9 Provide gentle IV fluids; hold ZACH-I for now. Will initiate vasopressors if unable to sustain MAP above 65 mmHg Basal insulin with HDSS; hemoglobin A1c pending. FEN - NPO PPX - Heparin FULL CODE Dispo - inpatient for above No surrogate decision maker named at this time due to clinical condition History of Present Illness History of Present Illness 65-year-old male with past medical history systolic CHF, recent COVID-19, recent NSTEMI, who presents as a transfer from [facility] ER due to acute respiratory distress. Patient was recently discharged 10 days ago after being treated inpatient for NSTEMI and COVID-19 pneumonia. At that time he had cardiac catheterization that showed severe three-vessel coronary artery disease with culprit lesion from the acute stent thrombosis of the distal RCA stent. He was treated with successful angioplasty of distal RCA stent, and was subsequently found to be COVID-19 positive. After he recovered from COVID-19 he was discharged home with [facility] home [facility]. Last night he presented to [facility] ER in respiratory distress. EMS has been contacted to his place of residence and upon arrival patient was in acute respiratory distress saturating in the 70s. He was placed on BiPAP but continued to decline from respiratory standpoint requiring intubation. Labs on admission from [facility] ER showed WBC 12.7, hemoglobin 11.8, hematocrit 37.6, creatinine 1.7, CBG 331, troponin 0.069, BNP 14,201, albumin 2.8. EKG with multiple abnormalities but no STEMI. Chest x-ray showed significant bilateral multifocal opacities suggestive of edema versus infection. Blood cultures were taken and he received IV fluids, and broad-spectrum IV antibiotics. He was transferred to [facility] for further medical management. 07/11/2021 No acute events overnight. Afebrile. Hypotension requiring Levophed support. Saturating 97% on minimal vent settings at 24/450/40/50. Patient's chart, labs, images were reviewed and discussed with RN. A total of 85 minutes of critical care time was spent in reviewing chart, labs, and images. Discussed with RN and SW. Vitals/I&O Vitals/I&O: Vital Signs Date Time Temp Pulse Resp B/P (MAP) Pulse Ox O2 Delivery O2 Flow Rate FiO2 07/11/21 11:54 97 Ventilator 07/11/21 11:00 78 24 83/64 (70) 07/11/21 08:00 97.7 97.7 I & O 07/10/21 07/10/21 07/11/21 15:00 23:00 07:00 Intake Total 1554.5 ml 924.3 ml Output Total 440 ml 1085 ml 305 ml Balance -440 ml 469.5 ml 619.3 ml Physical Exam Lungs: Crackles Labs Labs: Laboratory Tests Test 07/10/21 13:24 07/10/21 15:50 07/10/21 18:16 07/11/21 05:40 Glucose (Fingerstick) 152 mg/dL (70-99) 127 mg/dL (70-99) 101 mg/dL (70-99) Mixed Venous Blood pH 7.42 Mixed Venous Blood PCO2 35 mmHg Mixed Venous Blood PO2 42 mmHg Mixed Venous Blood HCO3 22 mmol/L Mixed Venous Blood Base Excess -2 mmol/L Mixed Venous Blood O2 Saturation 79 % FiO2 50 Test 07/11/21 05:45 07/11/21 07:30 07/11/21 13:18 White Blood Count 10.2 x10^3/uL (4.0-11.0) Red Blood Count 3.30 x10^6/uL (4.30-5.70) Hemoglobin 10.4 g/dL (13.0-17.5) Hematocrit 30.3 % (39.0-53.0) Mean Corpuscular Volume 92 fL (79-100) Mean Corpuscular Hemoglobin 32 pg (25-35) Mean Corpuscular Hemoglobin Concent 34 g/dL (31-37) Red Cell Distribution Width 15.5 % (11.5-14.5) Platelet Count 175 x10^3/uL (140-400) Neutrophils (%) (Auto) 84 % (31-73) Lymphocytes (%) (Auto) 8 % (24-48) Monocytes (%) (Auto) 9 % (0-9) Eosinophils (%) (Auto) 0 % (0-3) Basophils (%) (Auto) 0 % (0-3) Neutrophils # (Auto) 8.6 x10^3/uL (1.8-7.7) Lymphocytes # (Auto) 0.8 x10^3/uL (1.0-4.8) Monocytes # (Auto) 0.9 x10^3/uL (0.0-1.1) Eosinophils # (Auto) 0.0 x10^3/uL (0.0-0.7) Basophils # (Auto) 0.0 x10^3/uL (0.0-0.2) Sodium Level 143 mmol/L (136-145) Potassium Level 4.2 mmol/L (3.5-5.1) Chloride Level 107 mmol/L (98-107) Carbon Dioxide Level 27 mmol/L (21-32) Anion Gap 9 (6-14) Blood Urea Nitrogen 20 mg/dL (8-26) Creatinine 1.6 mg/dL (0.7-1.3) Estimated GFR (Cockcroft-Gault) 43.6 Glucose Level 105 mg/dL (70-99) Calcium Level 8.3 mg/dL (8.5-10.1) O2 Saturation 95 % (92-99) Arterial Blood pH 7.46 (7.35-7.45) Arterial Blood pCO2 at Patient Temp 31 mmHg (35-46) Arterial Blood pO2 at Patient Temp 82 mmHg (65-108) Arterial Blood HCO3 21 mmol/L (21-28) Arterial Blood Base Excess -2 mmol/L (-3-3) FiO2 40/vent Glucose (Fingerstick) 75 mg/dL (70-99) Comment Review of Relevant I have reviewed the following items maria guadalupe (where applicable) has been applied. Medications: Current Medications Medications (Trade) Dose Ordered Sig/[place] Route PRN Reason Start Time Stop Time Status Last Admin Dose Admin Atorvastatin Calcium (Lipitor) 80 mg QHS PO 07/10/21 21:00 07/10/21 20:33 Furosemide (Lasix) 20 mg DAILY IVP 07/11/21 09:00 07/11/21 10:52 Spironolactone (Aldactone) 12.5 mg DAILY PO 07/11/21 09:00 07/11/21 10:54 Furosemide (Lasix) 40 mg 1X ONCE IVP 07/10/21 16:15 07/10/21 16:16 DC 07/10/21 16:50 Justifications for Admission Other Justification ILA FIELDS MD Jul 11, 2021 13:26
--- NOTE | 2021-07-11 16:23 | NUR ---
SS following for discharge planning. SS reviewed pt chart and discussed with pt RN. Pt is from home with spouse and is currently on the vent at 40%. COVID19 PCR being ordered. Pt on IV Lasix, IV Cefepime, and IV Zyvox. No sedation. SS will continue to follow for discharge planning.
[2021-07-11 17:28] LABS: BASE EXCESS ABG 2 mmol/L (-3-3); HCO3 ABG 24 mmol/L (21-28); PCO2 ABG 31 mmHg (35-46); PO2 ABG 119 mmHg (65-108); SAT O2 ABG 98 % (92-99)
--- NOTE | 2021-07-11 17:29 | NUR ---
Order to extubate received verbally from Dr. Armas at 1701. Patient extubated at 1715 to 2L NC. Calm and cooperative demeanor, and patient responds to commands.
[2021-07-11] MEDS: ATORVASTATIN CALCIUM 40 MG TABLET. PO SCH (19:52)
[2021-07-12] VITALS (23 sets, daily range): BP systolic 81–116; BP diastolic 46–60
[2021-07-12 04:59] LABS: BASO # 0.1 x10^3/uL (0.0-0.2); BASO % 1 % (0-3); EOS # 0.1 x10^3/uL (0.0-0.7); EOS % 1 % (0-3); HEMATOCRIT 28.9 % (39.0-53.0); HEMOGLOBIN 9.8 g/dL (13.0-17.5); LYMPH # 1.3 x10^3/uL (1.0-4.8); LYMPH % 17 % (24-48); MEAN CORPUSCULAR HEMOGLOBIN 31 pg (25-35); MEAN CORPUSCULAR HGB CONC 34 g/dL (31-37); MEAN CORPUSCULAR VOLUME 93 fL (79-100); MONO # 0.7 x10^3/uL (0.0-1.1); MONO % 9 % (0-9); NEUT # 5.5 x10^3/uL (1.8-7.7); NEUT % 72 % (31-73); PLATELET COUNT 143 x10^3/uL (140-400); RED BLOOD COUNT 3.12 x10^6/uL (4.30-5.70); RED CELL DISTRIBUTION WIDTH 15.5 % (11.5-14.5); WHITE BLOOD COUNT 7.6 x10^3/uL (4.0-11.0)
[2021-07-12 05:11] LABS: CALCIUM 8.1 mg/dL (8.5-10.1); CREATININE 1.4 mg/dL (0.7-1.3); GFR 50.9; POTASSIUM 3.7 mmol/L (3.5-5.1)
[2021-07-12] MEDS: INSULIN LISPRO 300 UNITS/3 ML VIAL. SQ SCH ×5 (06:00→22:42)
[2021-07-12] MEDS: ASPIRIN CHEWABLE 81 MG TABLET. PO SCH (08:00)
[2021-07-12] MEDS: SPIRONOLACTONE 25 MG TABLET PO SCH (09:00)
[2021-07-12] MEDS: AMIODARONE HCL 200 MG TABLET. PO SCH (09:00)
[2021-07-12] MEDS: METOPROLOL TART IMMED RELEASE 50 MG TABLET. PO SCH ×2 (09:00→20:19)
[2021-07-12] MEDS: ELECTROLYTE (ICU) PROTOCOL. MC SCH (09:00)
[2021-07-12] MEDS: INSULIN GLARGINE SYRINGE. SQ SCH (09:00)
[2021-07-12] MEDS: DIGOXIN 125 MCG TABLET. PO SCH (09:00)
[2021-07-12] MEDS: PRASUGREL 10 MG TABLET. PO SCH (09:00)
[2021-07-12] MEDS: PANTOPRAZOLE IV PUSH 40 MG VIAL. IVP SCH (10:23)
[2021-07-12] MEDS: FUROSEMIDE 20 MG/2 ML VIAL. IVP SCH (10:28)
[2021-07-12] MEDS: CEFEPIME HCL IV Push 2 GM VIAL. IVP SCH ×2 (10:30→20:31)
[2021-07-12] MEDS ORDERED: ALBUMIN HUMAN 5% 500 ML IV ONE (10:30)
--- NOTE | 2021-07-12 11:25 | PDOC ---
PULMONARY PROGRESS NOTES DATE: 07/12/21 TIME: 11:21 Subjective Patient did well on CPAP trial. He was extubated 07/11. He is doing well no shortness of breath Vitals Vital Signs Date Time Temp Pulse Resp B/P (MAP) Pulse Ox O2 Delivery O2 Flow Rate FiO2 07/12/21 11:00 78 18 98/54 (69) 94 Room Air 07/12/21 10:00 2.0 07/12/21 08:00 98.1 98.1 Comments Intubated General: Alert, No acute distress HEENT: Other (Intubated) Lungs: Crackles Cardiovascular: S1, S2 Abdomen: Soft Extremities: No Edema Labs Laboratory Tests Test 07/10/21 11:45 07/10/21 13:24 07/10/21 15:50 07/10/21 18:00 White Blood Count 10.8 x10^3/uL (4.0-11.0) Red Blood Count 3.98 x10^6/uL (4.30-5.70) Hemoglobin 12.4 g/dL (13.0-17.5) Hematocrit 38.3 % (39.0-53.0) Mean Corpuscular Volume 96 fL (79-100) Mean Corpuscular Hemoglobin 31 pg (25-35) Mean Corpuscular Hemoglobin Concent 32 g/dL (31-37) Red Cell Distribution Width 16.1 % (11.5-14.5) Platelet Count 193 x10^3/uL (140-400) Neutrophils (%) (Auto) 93 % (31-73) Lymphocytes (%) (Auto) 3 % (24-48) Monocytes (%) (Auto) 4 % (0-9) Eosinophils (%) (Auto) 0 % (0-3) Basophils (%) (Auto) 1 % (0-3) Neutrophils # (Auto) 10.1 x10^3/uL (1.8-7.7) Lymphocytes # (Auto) 0.3 x10^3/uL (1.0-4.8) Monocytes # (Auto) 0.4 x10^3/uL (0.0-1.1) Eosinophils # (Auto) 0.0 x10^3/uL (0.0-0.7) Basophils # (Auto) 0.1 x10^3/uL (0.0-0.2) Segmented Neutrophils % 92 % (35-66) Band Neutrophils % 2 % (0-9) Lymphocytes % 2 % (24-48) Monocytes % 4 % (0-10) Platelet Estimate Adequate (ADEQUATE) Sodium Level 141 mmol/L (136-145) Potassium Level 4.7 mmol/L (3.5-5.1) Chloride Level 108 mmol/L (98-107) Carbon Dioxide Level 24 mmol/L (21-32) Anion Gap 9 (6-14) Blood Urea Nitrogen 18 mg/dL (8-26) Creatinine 1.8 mg/dL (0.7-1.3) Estimated GFR (Cockcroft-Gault) 38.1 BUN/Creatinine Ratio 10 (6-20) Glucose Level 123 mg/dL (70-99) Hemoglobin A1c 5.3 % (4.8-5.6) Calcium Level 8.5 mg/dL (8.5-10.1) Total Bilirubin 0.2 mg/dL (0.2-1.0) Aspartate Amino Transf (AST/SGOT) 18 U/L (15-37) Alanine Aminotransferase (ALT/SGPT) 16 U/L (16-63) Alkaline Phosphatase 77 U/L (46-116) C-Reactive Protein, Quantitative 3.2 mg/L (0-3.3) Total Protein 6.1 g/dL (6.4-8.2) Albumin 2.7 g/dL (3.4-5.0) Albumin/Globulin Ratio 0.8 (1.0-1.7) Procalcitonin ng/mL (0.00-0.10) Glucose (Fingerstick) 152 mg/dL (70-99) Mixed Venous Blood pH 7.42 Mixed Venous Blood PCO2 35 mmHg Mixed Venous Blood PO2 42 mmHg Mixed Venous Blood HCO3 22 mmol/L Mixed Venous Blood Base Excess -2 mmol/L Mixed Venous Blood O2 Saturation 79 % FiO2 50 Nasal Screen MRSA (PCR) Negative (NEGATIVE) Test 07/10/21 18:16 07/11/21 05:40 07/11/21 05:45 07/11/21 07:30 Glucose (Fingerstick) 127 mg/dL (70-99) 101 mg/dL (70-99) White Blood Count 10.2 x10^3/uL (4.0-11.0) Red Blood Count 3.30 x10^6/uL (4.30-5.70) Hemoglobin 10.4 g/dL (13.0-17.5) Hematocrit 30.3 % (39.0-53.0) Mean Corpuscular Volume 92 fL (79-100) Mean Corpuscular Hemoglobin 32 pg (25-35) Mean Corpuscular Hemoglobin Concent 34 g/dL (31-37) Red Cell Distribution Width 15.5 % (11.5-14.5) Platelet Count 175 x10^3/uL (140-400) Neutrophils (%) (Auto) 84 % (31-73) Lymphocytes (%) (Auto) 8 % (24-48) Monocytes (%) (Auto) 9 % (0-9) Eosinophils (%) (Auto) 0 % (0-3) Basophils (%) (Auto) 0 % (0-3) Neutrophils # (Auto) 8.6 x10^3/uL (1.8-7.7) Lymphocytes # (Auto) 0.8 x10^3/uL (1.0-4.8) Monocytes # (Auto) 0.9 x10^3/uL (0.0-1.1) Eosinophils # (Auto) 0.0 x10^3/uL (0.0-0.7) Basophils # (Auto) 0.0 x10^3/uL (0.0-0.2) Sodium Level 143 mmol/L (136-145) Potassium Level 4.2 mmol/L (3.5-5.1) Chloride Level 107 mmol/L (98-107) Carbon Dioxide Level 27 mmol/L (21-32) Anion Gap 9 (6-14) Blood Urea Nitrogen 20 mg/dL (8-26) Creatinine 1.6 mg/dL (0.7-1.3) Estimated GFR (Cockcroft-Gault) 43.6 Glucose Level 105 mg/dL (70-99) Calcium Level 8.3 mg/dL (8.5-10.1) O2 Saturation 95 % (92-99) Arterial Blood pH 7.46 (7.35-7.45) Arterial Blood pCO2 at Patient Temp 31 mmHg (35-46) Arterial Blood pO2 at Patient Temp 82 mmHg (65-108) Arterial Blood HCO3 21 mmol/L (21-28) Arterial Blood Base Excess -2 mmol/L (-3-3) FiO2 40/vent Test 07/11/21 13:18 07/11/21 16:53 07/11/21 18:48 07/11/21 19:15 Glucose (Fingerstick) 75 mg/dL (70-99) 77 mg/dL (70-99) O2 Saturation 98 % (92-99) Arterial Blood pH 7.51 (7.35-7.45) Arterial Blood pCO2 at Patient Temp 31 mmHg (35-46) Arterial Blood pO2 at Patient Temp 119 mmHg (65-108) Arterial Blood HCO3 24 mmol/L (21-28) Arterial Blood Base Excess 2 mmol/L (-3-3) FiO2 Cpap 10/5 40% SARS-CoV-2 RNA (TROY) Negative (Negative) Test 07/11/21 20:14 07/11/21 23:44 07/12/21 04:29 07/12/21 04:55 Glucose (Fingerstick) 81 mg/dL (70-99) 91 mg/dL (70-99) 87 mg/dL (70-99) White Blood Count 7.6 x10^3/uL (4.0-11.0) Red Blood Count 3.12 x10^6/uL (4.30-5.70) Hemoglobin 9.8 g/dL (13.0-17.5) Hematocrit 28.9 % (39.0-53.0) Mean Corpuscular Volume 93 fL (79-100) Mean Corpuscular Hemoglobin 31 pg (25-35) Mean Corpuscular Hemoglobin Concent 34 g/dL (31-37) Red Cell Distribution Width 15.5 % (11.5-14.5) Platelet Count 143 x10^3/uL (140-400) Neutrophils (%) (Auto) 72 % (31-73) Lymphocytes (%) (Auto) 17 % (24-48) Monocytes (%) (Auto) 9 % (0-9) Eosinophils (%) (Auto) 1 % (0-3) Basophils (%) (Auto) 1 % (0-3) Neutrophils # (Auto) 5.5 x10^3/uL (1.8-7.7) Lymphocytes # (Auto) 1.3 x10^3/uL (1.0-4.8) Monocytes # (Auto) 0.7 x10^3/uL (0.0-1.1) Eosinophils # (Auto) 0.1 x10^3/uL (0.0-0.7) Basophils # (Auto) 0.1 x10^3/uL (0.0-0.2) Sodium Level 142 mmol/L (136-145) Potassium Level 3.7 mmol/L (3.5-5.1) Chloride Level 108 mmol/L (98-107) Carbon Dioxide Level 26 mmol/L (21-32) Anion Gap 8 (6-14) Blood Urea Nitrogen 17 mg/dL (8-26) Creatinine 1.4 mg/dL (0.7-1.3) Estimated GFR (Cockcroft-Gault) 50.9 Glucose Level 83 mg/dL (70-99) Calcium Level 8.1 mg/dL (8.5-10.1) Laboratory Tests Test 07/11/21 13:18 07/11/21 16:53 07/11/21 18:48 07/11/21 19:15 Glucose (Fingerstick) 75 mg/dL (70-99) 77 mg/dL (70-99) O2 Saturation 98 % (92-99) Arterial Blood pH 7.51 (7.35-7.45) Arterial Blood pCO2 at Patient Temp 31 mmHg (35-46) Arterial Blood pO2 at Patient Temp 119 mmHg (65-108) Arterial Blood HCO3 24 mmol/L (21-28) Arterial Blood Base Excess 2 mmol/L (-3-3) FiO2 Cpap 10/5 40% SARS-CoV-2 RNA (TROY) Negative (Negative) Test 07/11/21 20:14 07/11/21 23:44 07/12/21 04:29 07/12/21 04:55 Glucose (Fingerstick) 81 mg/dL (70-99) 91 mg/dL (70-99) 87 mg/dL (70-99) White Blood Count 7.6 x10^3/uL (4.0-11.0) Red Blood Count 3.12 x10^6/uL (4.30-5.70) Hemoglobin 9.8 g/dL (13.0-17.5) Hematocrit 28.9 % (39.0-53.0) Mean Corpuscular Volume 93 fL (79-100) Mean Corpuscular Hemoglobin 31 pg (25-35) Mean Corpuscular Hemoglobin Concent 34 g/dL (31-37) Red Cell Distribution Width 15.5 % (11.5-14.5) Platelet Count 143 x10^3/uL (140-400) Neutrophils (%) (Auto) 72 % (31-73) Lymphocytes (%) (Auto) 17 % (24-48) Monocytes (%) (Auto) 9 % (0-9) Eosinophils (%) (Auto) 1 % (0-3) Basophils (%) (Auto) 1 % (0-3) Neutrophils # (Auto) 5.5 x10^3/uL (1.8-7.7) Lymphocytes # (Auto) 1.3 x10^3/uL (1.0-4.8) Monocytes # (Auto) 0.7 x10^3/uL (0.0-1.1) Eosinophils # (Auto) 0.1 x10^3/uL (0.0-0.7) Basophils # (Auto) 0.1 x10^3/uL (0.0-0.2) Sodium Level 142 mmol/L (136-145) Potassium Level 3.7 mmol/L (3.5-5.1) Chloride Level 108 mmol/L (98-107) Carbon Dioxide Level 26 mmol/L (21-32) Anion Gap 8 (6-14) Blood Urea Nitrogen 17 mg/dL (8-26) Creatinine 1.4 mg/dL (0.7-1.3) Estimated GFR (Cockcroft-Gault) 50.9 Glucose Level 83 mg/dL (70-99) Calcium Level 8.1 mg/dL (8.5-10.1) Medications Active Scripts Medications Dose Route/Sig Max Daily Dose Days Date Category Effient (Prasugrel Hcl) 10 Mg Tablet 10 Mg PO DAILY 06/29/21 Rx Effient (Prasugrel Hcl) 10 Mg Tablet 1 Tab PO DAILY 06/29/21 Rx Amiodarone Hcl 200 Mg Tablet 400 Mg PO DAILY 06/29/21 Rx Entresto 97 mg-103 mg Tablet (Sacubitril/Valsartan) 1 Each Tablet 1 Each PO DAILY 03/09/19 Reported Aspir-Low (Aspirin) 81 Mg Tablet.dr 1 Tab PO DAILY 03/09/19 Reported Vitamin D (Cholecalciferol (Vitamin D3)) 1,000 Unit Capsule 1 Cap PO DAILY 03/09/19 Reported Spironolactone 25 Mg Tablet 0.5 Tab PO DAILY 03/09/19 Reported Sertraline Hcl 100 Mg Tablet 100 Mg PO DAILY 03/09/19 Reported Omeprazole 20 Mg Capsule.dr 1 Cap PO DAILY 03/09/19 Reported Toprol Xl (Metoprolol Succinate) 100 Mg Tab.er.24h 1 Tab PO DAILY 03/09/19 Reported Digoxin 125 Mcg Tablet 125 Mcg PO DAILY 03/09/19 Reported Atorvastatin Calcium 80 Mg Tablet 80 Mg PO HS 03/09/19 Reported Impression . IMPRESSION: 1. Acute respiratory failure secondary to acute systolic and diastolic congestive heart failure, rule out pneumonia, aspiration. 2. Abnormal chest x-ray. 3. Acute systolic and diastolic congestive heart failure. 4. Coronary artery disease. 5. Question maria guadalupe pneumonia, aspiration. 6. Acute kidney injuryon CKD baseline cr. 1.4 7. His rapid COVID testing at [facility] was negative. 8. History of ventricular fibrillation arrest on 06/09/2021, status post percutaneous coronary intervention to RCA 9. Cardiomyopathy with ejection fraction 20%. 10. Secondary pulmonary hypertension due to acute systolic and diastolic congestive heart failure. 11. Chronic obstructive pulmonary disease. Plan . Updated 07/12/2021 Continue current nasal cannula. Patient extubated 07/11. Follow chest x-ray/ABG make changes as needed Follow cardiology recommendations, EF 20%, status post recent FL with PCI to RCA, Remains on Levophed and dobutamine was added. Follow cardiology recommendations. Ongoing diuresis, monitor renal function Continue empiric antibiotics, currently on Zyvox Continue vasopressor medications to keep MAP greater than 65 Nutritional support DVT/GI prophylaxis: Lovenox Discussed with RN and RT Updated 07/11/2021 Continue current ventilatory support, 28/450/40/5 Follow chest x-ray/ABG make changes as needed Follow cardiology recommendations, EF 20%, status post recent FL with PCI to RCA, Ongoing diuresis, monitor renal function Continue empiric antibiotics, currently on Zyvox Continue vasopressor medications to keep MAP greater than 65 Nutritional support DVT/GI prophylaxis: Lovenox Discussed with RN and RT addend: Pt did better with CPAP trial in the afternoon. ABG adequate. Following commands .Will proceed with extubation. Message left for . CC time 30 minutes ANALISA MCKEON MD Jul 12, 2021 11:25
--- NOTE | 2021-07-12 12:15 | PDOC ---
REJI SILVA HAND TACKER 07/12/21 1215: CARDIO Progress Notes Date and Time Date of Service 07/12/21 Time of Evaluation 1215 Subjective Subjective: No Chest Pain, No shortness of breath, No Palpitations, Other (extubated. ) Vitals Vitals Vital Signs Date Time Temp Pulse Resp B/P (MAP) Pulse Ox O2 Delivery O2 Flow Rate FiO2 07/12/21 11:00 78 18 98/54 (69) 94 Room Air 07/12/21 10:00 2.0 07/12/21 08:00 98.1 98.1 Weight Weight [ ] Input and Output Intake and Output Intake and Output 07/12/21 07:00 Intake Total 100 ml Output Total 2375 ml Balance -2275 ml Intake Oral 0 ml Tube Feeding 100 ml Output Urine Total 2375 ml Laboratory Labs Laboratory Tests Test 07/11/21 13:18 07/11/21 16:53 07/11/21 18:48 07/11/21 19:15 Glucose (Fingerstick) 75 mg/dL (70-99) 77 mg/dL (70-99) O2 Saturation 98 % (92-99) Arterial Blood pH 7.51 (7.35-7.45) Arterial Blood pCO2 at Patient Temp 31 mmHg (35-46) Arterial Blood pO2 at Patient Temp 119 mmHg (65-108) Arterial Blood HCO3 24 mmol/L (21-28) Arterial Blood Base Excess 2 mmol/L (-3-3) FiO2 Cpap 10/5 40% SARS-CoV-2 RNA (TROY) Negative (Negative) Test 07/11/21 20:14 07/11/21 23:44 07/12/21 04:29 07/12/21 04:55 Glucose (Fingerstick) 81 mg/dL (70-99) 91 mg/dL (70-99) 87 mg/dL (70-99) White Blood Count 7.6 x10^3/uL (4.0-11.0) Red Blood Count 3.12 x10^6/uL (4.30-5.70) Hemoglobin 9.8 g/dL (13.0-17.5) Hematocrit 28.9 % (39.0-53.0) Mean Corpuscular Volume 93 fL (79-100) Mean Corpuscular Hemoglobin 31 pg (25-35) Mean Corpuscular Hemoglobin Concent 34 g/dL (31-37) Red Cell Distribution Width 15.5 % (11.5-14.5) Platelet Count 143 x10^3/uL (140-400) Neutrophils (%) (Auto) 72 % (31-73) Lymphocytes (%) (Auto) 17 % (24-48) Monocytes (%) (Auto) 9 % (0-9) Eosinophils (%) (Auto) 1 % (0-3) Basophils (%) (Auto) 1 % (0-3) Neutrophils # (Auto) 5.5 x10^3/uL (1.8-7.7) Lymphocytes # (Auto) 1.3 x10^3/uL (1.0-4.8) Monocytes # (Auto) 0.7 x10^3/uL (0.0-1.1) Eosinophils # (Auto) 0.1 x10^3/uL (0.0-0.7) Basophils # (Auto) 0.1 x10^3/uL (0.0-0.2) Sodium Level 142 mmol/L (136-145) Potassium Level 3.7 mmol/L (3.5-5.1) Chloride Level 108 mmol/L (98-107) Carbon Dioxide Level 26 mmol/L (21-32) Anion Gap 8 (6-14) Blood Urea Nitrogen 17 mg/dL (8-26) Creatinine 1.4 mg/dL (0.7-1.3) Estimated GFR (Cockcroft-Gault) 50.9 Glucose Level 83 mg/dL (70-99) Calcium Level 8.1 mg/dL (8.5-10.1) Microbiology Micro Microbiology 07/10/21 Gram Stain Evaluation - Final, Resulted 07/10/21 Respiratory Culture - Preliminary, Resulted Physical Exam HEENT: Neck Supple W Full Motion Chest: Symmetric LUNGS: Other (diminished bases) Heart: RRR Abdomen: Soft N/T Extremities: No Edema Neurology: alert, oriented, follow commands Assessment Assessment 1. Acute on chronic respiratory failure; multifactorial with CHF and possible PNA. ? aspiration. extubated 2 Acute on chronic systolic and diastolic HF; s/o diuresis with IV Lasix 3. Hypotension; requiring pressor support 4. CAD s/p PCI/stent to LAD and RCA; S/p recent PTCA to ISR of distal RCA stents (06/09/21) 5. ICM; LVEF 20%. s/p AICD (Medtronic). Follows with [place] cardiology, Dr Gregory 6. PAF; on Amiodarone for rhythm maintenance 7. Recent VFIB arrest 8. REYNALDO on CKD; Cr better 9. PUI: COVID + 06/09. Negative this admission 10. Dysphagia Recommendations Secondary prevention Rectal ASA while NPO ST evaluation Lasix therapy Hold metoprolol with hypotension Dig for rate control Resume Amiodarone for rhythm maintenance when able to take PO Supportive care Justicifation of Admission Dx: Justifications for Admission: Justification of Admission Dx: Yes URI CARLSON MD 07/12/21 1835: CARDIO Progress Notes Plan Plan Pt. seen and examined. Agree with above SALES SUPPORT ENGINEER note. Supportive care. Continue Dobutamine. Will consider afterload agents as BP improves. Continue tx of aspiration PNA. REJI SILVA APRN Jul 12, 2021 12:15 URI CARLSON MD Jul 12, 2021 18:35
[2021-07-12] MEDS: ENOXAPARIN 40 MG/0.4 ML SYRINGE. SQ SCH (13:02)
--- NOTE | 2021-07-12 13:56 | PDOC ---
[employer] PROGRESS NOTE Date of Service DOS: DATE: 07/12/21 TIME: 13:53 Chief Complaint Chief Complaint Sepsis Acute respiratory failure with hypoxia Hospital-acquired pneumonia due to gram-positive or possible gram-negative organism Recent NSTEMI s/p cardiac cath with stent Systolic CHF exacerbation DM2 with hyperglycemia Pulmonary hypertension S/p COVID-19 pneumonia - recovered Plan: Admitted to ICU intubated on ventilator Consultation placed to pulmonology Basic lab work pending, including CRP, procalcitonin. Will cover for HAP with cefepime and Vancomycin; MRSA PCR pending, de-escalate vancomycin if MRSA negative. Diuresis with Lasix Renal function from 06/30/2021 showed creatinine 1.4, EGFR 50.9 Provide gentle IV fluids; hold ZACH-I for now. Will initiate vasopressors if unable to sustain MAP above 65 mmHg Basal insulin with HDSS; hemoglobin A1c pending. FEN - NPO PPX - Heparin FULL CODE Dispo - inpatient for above No surrogate decision maker named at this time due to clinical condition History of Present Illness History of Present Illness 65-year-old male with past medical history systolic CHF, recent COVID-19, recent NSTEMI, who presents as a transfer from [facility] [place] [facility] due to acute respiratory distress. Patient was recently discharged 10 days ago after being treated inpatient for NSTEMI and COVID-19 pneumonia. At that time he had cardiac catheterization that showed severe three-vessel coronary artery disease with culprit lesion from the acute stent thrombosis of the distal RCA stent. He was treated with successful angioplasty of distal RCA stent, and was subsequently found to be COVID-19 positive. After he recovered from COVID-19 he was discharged home with [facility] home health. Last night he presented to [facility] ER in respiratory distress. EMS has been contacted to his place of residence and upon arrival patient was in acute respiratory distress saturating in the 70s. He was placed on BiPAP but continued to decline from respiratory standpoint requiring intubation. Labs on admission from [facility] ER showed WBC 12.7, hemoglobin 11.8, hematocrit 37.6, creatinine 1.7, CBG 331, troponin 0.069, BNP 14,201, albumin 2.8. EKG with multiple abnormalities but no STEMI. Chest x-ray showed significant bilateral multifocal opacities suggestive of edema versus infection. Blood cultures were taken and he received IV fluids, and broad-spectrum IV antibiotics. He was transferred to [facility] for further medical management. 07/11/2021 No acute events overnight. Afebrile. Hypotension requiring Levophed support. Saturating 97% on minimal vent settings at 24/450/40/50. Patient's chart, labs, images were reviewed and discussed with RN. A total of 85 minutes of critical care time was spent in reviewing chart, labs, and images. Discussed with RN and SW. 07/12/21 No acute events overnight. Patient saturating 96% on room air. Patient extubated yesterday not requiring to go back on BiPAP or O2 required only about 3 l nasal cannula at most. Patient's chart, labs, images were reviewed and discussed with RN Vitals/I&O Vitals/I&O: Vital Signs Date Time Temp Pulse Resp B/P (MAP) Pulse Ox O2 Delivery O2 Flow Rate FiO2 07/12/21 13:00 78 20 110/58 (75) 96 Room Air 07/12/21 12:00 98.1 98.1 07/12/21 10:00 2.0 I & O 07/11/21 07/11/21 07/12/21 15:00 23:00 07:00 Intake Total 40 ml 60 ml Output Total 815 ml 810 ml 750 ml Balance -775 ml -750 ml -750 ml Physical Exam General: Alert, Oriented X3, Cooperative Heart: Regular rate Lungs: Crackles Abdomen: No tenderness Extremities: No edema Skin: No rashes Labs Labs: Laboratory Tests Test 07/11/21 16:53 07/11/21 18:48 07/11/21 19:15 07/11/21 20:14 O2 Saturation 98 % (92-99) Arterial Blood pH 7.51 (7.35-7.45) Arterial Blood pCO2 at Patient Temp 31 mmHg (35-46) Arterial Blood pO2 at Patient Temp 119 mmHg (65-108) Arterial Blood HCO3 24 mmol/L (21-28) Arterial Blood Base Excess 2 mmol/L (-3-3) FiO2 Cpap 10/5 40% Glucose (Fingerstick) 77 mg/dL (70-99) 81 mg/dL (70-99) SARS-CoV-2 RNA (TROY) Negative (Negative) Test 07/11/21 23:44 07/12/21 04:29 07/12/21 04:55 07/12/21 12:15 Glucose (Fingerstick) 91 mg/dL (70-99) 87 mg/dL (70-99) 92 mg/dL (70-99) White Blood Count 7.6 x10^3/uL (4.0-11.0) Red Blood Count 3.12 x10^6/uL (4.30-5.70) Hemoglobin 9.8 g/dL (13.0-17.5) Hematocrit 28.9 % (39.0-53.0) Mean Corpuscular Volume 93 fL (79-100) Mean Corpuscular Hemoglobin 31 pg (25-35) Mean Corpuscular Hemoglobin Concent 34 g/dL (31-37) Red Cell Distribution Width 15.5 % (11.5-14.5) Platelet Count 143 x10^3/uL (140-400) Neutrophils (%) (Auto) 72 % (31-73) Lymphocytes (%) (Auto) 17 % (24-48) Monocytes (%) (Auto) 9 % (0-9) Eosinophils (%) (Auto) 1 % (0-3) Basophils (%) (Auto) 1 % (0-3) Neutrophils # (Auto) 5.5 x10^3/uL (1.8-7.7) Lymphocytes # (Auto) 1.3 x10^3/uL (1.0-4.8) Monocytes # (Auto) 0.7 x10^3/uL (0.0-1.1) Eosinophils # (Auto) 0.1 x10^3/uL (0.0-0.7) Basophils # (Auto) 0.1 x10^3/uL (0.0-0.2) Sodium Level 142 mmol/L (136-145) Potassium Level 3.7 mmol/L (3.5-5.1) Chloride Level 108 mmol/L (98-107) Carbon Dioxide Level 26 mmol/L (21-32) Anion Gap 8 (6-14) Blood Urea Nitrogen 17 mg/dL (8-26) Creatinine 1.4 mg/dL (0.7-1.3) Estimated GFR (Cockcroft-Gault) 50.9 Glucose Level 83 mg/dL (70-99) Calcium Level 8.1 mg/dL (8.5-10.1) Comment Review of Relevant I have reviewed the following items maria guadalupe (where applicable) has been applied. Medications: Current Medications Medications (Trade) Dose Ordered Sig/Asia Route PRN Reason Start Time Stop Time Status Last Admin Dose Admin Dobutamine HCl/ Dextrose 250 ml @ 13.815 mls/ hr CONT PRN IV SEE I/O RECORD 07/11/21 18:30 07/12/21 12:43 Albumin Human 500 ml @ 125 mls/hr 1X ONCE IV 07/12/21 10:30 07/12/21 14:29 07/12/21 10:43 Justifications for Admission Other Justification ILA FIELDS MD Jul 12, 2021 13:56
[2021-07-12] MEDS ORDERED: ASPIRIN RECTAL 300 MG SUPP. PR PRN (15:00)
[2021-07-12] MEDS ORDERED: DIGOXIN IV 500 MCG/2 ML AMPUL. IV ONE (15:00)
[2021-07-12] MEDS: ASPIRIN RECTAL 300 MG SUPP. PR PRN (15:46)
[2021-07-12] MEDS: ATORVASTATIN CALCIUM 40 MG TABLET. PO SCH (20:19)
[2021-07-12] MEDS: DEXMEDETOMIDINE 400 MCG in IV NORMAL SALINE 100ML 96 ML IV PRN (20:41)
[2021-07-13 03:00] VITALS: BP 118/63
[2021-07-13] MEDS: INSULIN LISPRO 300 UNITS/3 ML VIAL. SQ SCH ×2 (05:24→10:59)
[2021-07-13 05:27] LABS: BASO % 1 % (0-3); EOS % 1 % (0-3); HEMATOCRIT 26.1 % (39.0-53.0); HEMOGLOBIN 8.9 g/dL (13.0-17.5); LYMPH # 0.7 x10^3/uL (1.0-4.8); LYMPH % 13 % (24-48); MEAN CORPUSCULAR HEMOGLOBIN 32 pg (25-35); MEAN CORPUSCULAR HGB CONC 34 g/dL (31-37); MEAN CORPUSCULAR VOLUME 93 fL (79-100); MONO # 0.5 x10^3/uL (0.0-1.1); MONO % 10 % (0-9); NEUT # 3.9 x10^3/uL (1.8-7.7); NEUT % 76 % (31-73); PLATELET COUNT 136 x10^3/uL (140-400); RED BLOOD COUNT 2.82 x10^6/uL (4.30-5.70); RED CELL DISTRIBUTION WIDTH 15.6 % (11.5-14.5); WHITE BLOOD COUNT 5.1 x10^3/uL (4.0-11.0)
[2021-07-13 05:37] LABS: CALCIUM 8.1 mg/dL (8.5-10.1); CREATININE 1.3 mg/dL (0.7-1.3); GFR 55.4; POTASSIUM 3.7 mmol/L (3.5-5.1)
[2021-07-13 07:00] VITALS: BP 120/74
[2021-07-13] MEDS: ASPIRIN CHEWABLE 81 MG TABLET. PO SCH (07:11)
[2021-07-13] MEDS: PRASUGREL 10 MG TABLET. PO SCH (07:12)
[2021-07-13] MEDS: METOPROLOL TART IMMED RELEASE 50 MG TABLET. PO SCH ×3 (07:12→20:53)
[2021-07-13] MEDS: DIGOXIN 125 MCG TABLET. PO SCH (07:12)
[2021-07-13] MEDS: AMIODARONE HCL 200 MG TABLET. PO SCH (07:12)
[2021-07-13] MEDS: SPIRONOLACTONE 25 MG TABLET PO SCH (07:12)
[2021-07-13] MEDS: PANTOPRAZOLE IV PUSH 40 MG VIAL. IVP SCH (08:04)
[2021-07-13] MEDS: FUROSEMIDE 20 MG/2 ML VIAL. IVP SCH (08:04)
[2021-07-13] MEDS: CEFEPIME HCL IV Push 2 GM VIAL. IVP SCH ×2 (08:05→20:37)
[2021-07-13] MEDS: ELECTROLYTE (ICU) PROTOCOL. MC SCH (08:05)
[2021-07-13] MEDS: ASPIRIN RECTAL 300 MG SUPP. PR PRN (08:29)
[2021-07-13 10:47] VITALS: BP 131/64
--- NOTE | 2021-07-13 11:16 | PDOC ---
REJI SILVA PROPERTY ADMINISTRATOR 07/13/21 1116: CARDIO Progress Notes Date and Time Date of Service 07/13/21 Time of Evaluation 1110 Subjective Subjective: No Chest Pain, No shortness of breath, No Palpitations, No Dizziness Vitals Vitals Vital Signs Date Time Temp Pulse Resp B/P (MAP) Pulse Ox O2 Delivery O2 Flow Rate FiO2 07/13/21 10:47 98.5 84 17 131/64 (86) 97 Room Air 98.5 07/12/21 10:00 2.0 Weight Weight [ ] Input and Output Intake and Output Intake and Output 07/13/21 07:00 Intake Total 1950 ml Output Total 3265 ml Balance -1315 ml Intake Oral 0 ml IV Total 1950 ml Output Urine Total 3265 ml Laboratory Labs Laboratory Tests Test 07/12/21 12:15 07/12/21 18:19 07/12/21 22:40 07/13/21 05:15 Glucose (Fingerstick) 92 mg/dL (70-99) 87 mg/dL (70-99) 88 mg/dL (70-99) White Blood Count 5.1 x10^3/uL (4.0-11.0) Red Blood Count 2.82 x10^6/uL (4.30-5.70) Hemoglobin 8.9 g/dL (13.0-17.5) Hematocrit 26.1 % (39.0-53.0) Mean Corpuscular Volume 93 fL (79-100) Mean Corpuscular Hemoglobin 32 pg (25-35) Mean Corpuscular Hemoglobin Concent 34 g/dL (31-37) Red Cell Distribution Width 15.6 % (11.5-14.5) Platelet Count 136 x10^3/uL (140-400) Neutrophils (%) (Auto) 76 % (31-73) Lymphocytes (%) (Auto) 13 % (24-48) Monocytes (%) (Auto) 10 % (0-9) Eosinophils (%) (Auto) 1 % (0-3) Basophils (%) (Auto) 1 % (0-3) Neutrophils # (Auto) 3.9 x10^3/uL (1.8-7.7) Lymphocytes # (Auto) 0.7 x10^3/uL (1.0-4.8) Monocytes # (Auto) 0.5 x10^3/uL (0.0-1.1) Eosinophils # (Auto) 0.0 x10^3/uL (0.0-0.7) Basophils # (Auto) 0.0 x10^3/uL (0.0-0.2) Sodium Level 142 mmol/L (136-145) Potassium Level 3.7 mmol/L (3.5-5.1) Chloride Level 109 mmol/L (98-107) Carbon Dioxide Level 27 mmol/L (21-32) Anion Gap 6 (6-14) Blood Urea Nitrogen 13 mg/dL (8-26) Creatinine 1.3 mg/dL (0.7-1.3) Estimated GFR (Cockcroft-Gault) 55.4 Glucose Level 89 mg/dL (70-99) Calcium Level 8.1 mg/dL (8.5-10.1) Test 07/13/21 05:18 07/13/21 10:49 Glucose (Fingerstick) 91 mg/dL (70-99) 96 mg/dL (70-99) Microbiology Micro Microbiology 07/10/21 Gram Stain Evaluation - Final, Complete 07/10/21 Respiratory Culture - Final, Complete Physical Exam HEENT: Neck Supple W Full Motion Chest: Symmetric LUNGS: Other (diminished bases) Heart: RRR Abdomen: Soft N/T Extremities: No Edema Neurology: alert, oriented, follow commands Assessment Assessment 1. Acute on chronic respiratory failure; multifactorial with CHF and probable aspiration PNA. extubated 2 Acute on chronic systolic and diastolic HF; s/p IV Lasix 3. Hypotension; on Dobutamine. BP adequate 4. CAD s/p PCI/stent to LAD and RCA; S/p recent PTCA to ISR of distal RCA stents (06/09/21) 5. ICM; LVEF 20%. s/p AICD ([employer]). Follows with [place] [facility], Dr Gregory 6. PAF; Amiodarone for rhythm maintenance 7. Recent VFIB arrest 8. REYNALDO on CKD; improved 9. PUI: COVID + 06/09. Negative this admission 10. Dysphagia; failed swallow study 07/12 Recommendations Secondary prevention Rectal ASA while NPO ST following; will need to resume DAPT as soon as possible Lasix therapy Dig for rate control Resume Amiodarone for rhythm maintenance when able to take PO Supportive care Justicifation of Admission Dx: Justifications for Admission: Justification of Admission Dx: Yes URI CARLSON MD 07/13/21 2323: REJI SILVA APRN Jul 13, 2021 11:16 URI CARLSON MD Jul 13, 2021 23:23
[2021-07-13] MEDS: ENOXAPARIN 40 MG/0.4 ML SYRINGE. SQ SCH (11:23)
--- NOTE | 2021-07-13 12:19 | PDOC ---
PULMONARY PROGRESS NOTES DATE: 07/13/21 TIME: 12:17 Subjective extubated 07/11. now on room air NO SOA or cough afebrile on dobutamine gtt Vitals Vital Signs Date Time Temp Pulse Resp B/P (MAP) Pulse Ox O2 Delivery O2 Flow Rate FiO2 07/13/21 10:47 98.5 84 17 131/64 (86) 97 Room Air 98.5 07/12/21 10:00 2.0 General: Alert, No acute distress HEENT: Other (Intubated) Lungs: Crackles Cardiovascular: S1, S2 Abdomen: Soft Extremities: No Edema Labs Laboratory Tests Test 07/11/21 13:18 07/11/21 16:53 07/11/21 18:48 07/11/21 19:15 Glucose (Fingerstick) 75 mg/dL (70-99) 77 mg/dL (70-99) O2 Saturation 98 % (92-99) Arterial Blood pH 7.51 (7.35-7.45) Arterial Blood pCO2 at Patient Temp 31 mmHg (35-46) Arterial Blood pO2 at Patient Temp 119 mmHg (65-108) Arterial Blood HCO3 24 mmol/L (21-28) Arterial Blood Base Excess 2 mmol/L (-3-3) FiO2 Cpap 10/5 40% SARS-CoV-2 RNA (TROY) Negative (Negative) Test 07/11/21 20:14 07/11/21 23:44 07/12/21 04:29 07/12/21 04:55 Glucose (Fingerstick) 81 mg/dL (70-99) 91 mg/dL (70-99) 87 mg/dL (70-99) White Blood Count 7.6 x10^3/uL (4.0-11.0) Red Blood Count 3.12 x10^6/uL (4.30-5.70) Hemoglobin 9.8 g/dL (13.0-17.5) Hematocrit 28.9 % (39.0-53.0) Mean Corpuscular Volume 93 fL (79-100) Mean Corpuscular Hemoglobin 31 pg (25-35) Mean Corpuscular Hemoglobin Concent 34 g/dL (31-37) Red Cell Distribution Width 15.5 % (11.5-14.5) Platelet Count 143 x10^3/uL (140-400) Neutrophils (%) (Auto) 72 % (31-73) Lymphocytes (%) (Auto) 17 % (24-48) Monocytes (%) (Auto) 9 % (0-9) Eosinophils (%) (Auto) 1 % (0-3) Basophils (%) (Auto) 1 % (0-3) Neutrophils # (Auto) 5.5 x10^3/uL (1.8-7.7) Lymphocytes # (Auto) 1.3 x10^3/uL (1.0-4.8) Monocytes # (Auto) 0.7 x10^3/uL (0.0-1.1) Eosinophils # (Auto) 0.1 x10^3/uL (0.0-0.7) Basophils # (Auto) 0.1 x10^3/uL (0.0-0.2) Sodium Level 142 mmol/L (136-145) Potassium Level 3.7 mmol/L (3.5-5.1) Chloride Level 108 mmol/L (98-107) Carbon Dioxide Level 26 mmol/L (21-32) Anion Gap 8 (6-14) Blood Urea Nitrogen 17 mg/dL (8-26) Creatinine 1.4 mg/dL (0.7-1.3) Estimated GFR (Cockcroft-Gault) 50.9 Glucose Level 83 mg/dL (70-99) Calcium Level 8.1 mg/dL (8.5-10.1) Test 07/12/21 12:15 07/12/21 18:19 07/12/21 22:40 07/13/21 05:15 Glucose (Fingerstick) 92 mg/dL (70-99) 87 mg/dL (70-99) 88 mg/dL (70-99) White Blood Count 5.1 x10^3/uL (4.0-11.0) Red Blood Count 2.82 x10^6/uL (4.30-5.70) Hemoglobin 8.9 g/dL (13.0-17.5) Hematocrit 26.1 % (39.0-53.0) Mean Corpuscular Volume 93 fL (79-100) Mean Corpuscular Hemoglobin 32 pg (25-35) Mean Corpuscular Hemoglobin Concent 34 g/dL (31-37) Red Cell Distribution Width 15.6 % (11.5-14.5) Platelet Count 136 x10^3/uL (140-400) Neutrophils (%) (Auto) 76 % (31-73) Lymphocytes (%) (Auto) 13 % (24-48) Monocytes (%) (Auto) 10 % (0-9) Eosinophils (%) (Auto) 1 % (0-3) Basophils (%) (Auto) 1 % (0-3) Neutrophils # (Auto) 3.9 x10^3/uL (1.8-7.7) Lymphocytes # (Auto) 0.7 x10^3/uL (1.0-4.8) Monocytes # (Auto) 0.5 x10^3/uL (0.0-1.1) Eosinophils # (Auto) 0.0 x10^3/uL (0.0-0.7) Basophils # (Auto) 0.0 x10^3/uL (0.0-0.2) Sodium Level 142 mmol/L (136-145) Potassium Level 3.7 mmol/L (3.5-5.1) Chloride Level 109 mmol/L (98-107) Carbon Dioxide Level 27 mmol/L (21-32) Anion Gap 6 (6-14) Blood Urea Nitrogen 13 mg/dL (8-26) Creatinine 1.3 mg/dL (0.7-1.3) Estimated GFR (Cockcroft-Gault) 55.4 Glucose Level 89 mg/dL (70-99) Calcium Level 8.1 mg/dL (8.5-10.1) Test 07/13/21 05:18 07/13/21 10:49 Glucose (Fingerstick) 91 mg/dL (70-99) 96 mg/dL (70-99) Laboratory Tests Test 07/12/21 18:19 07/12/21 22:40 07/13/21 05:15 07/13/21 05:18 Glucose (Fingerstick) 87 mg/dL (70-99) 88 mg/dL (70-99) 91 mg/dL (70-99) White Blood Count 5.1 x10^3/uL (4.0-11.0) Red Blood Count 2.82 x10^6/uL (4.30-5.70) Hemoglobin 8.9 g/dL (13.0-17.5) Hematocrit 26.1 % (39.0-53.0) Mean Corpuscular Volume 93 fL (79-100) Mean Corpuscular Hemoglobin 32 pg (25-35) Mean Corpuscular Hemoglobin Concent 34 g/dL (31-37) Red Cell Distribution Width 15.6 % (11.5-14.5) Platelet Count 136 x10^3/uL (140-400) Neutrophils (%) (Auto) 76 % (31-73) Lymphocytes (%) (Auto) 13 % (24-48) Monocytes (%) (Auto) 10 % (0-9) Eosinophils (%) (Auto) 1 % (0-3) Basophils (%) (Auto) 1 % (0-3) Neutrophils # (Auto) 3.9 x10^3/uL (1.8-7.7) Lymphocytes # (Auto) 0.7 x10^3/uL (1.0-4.8) Monocytes # (Auto) 0.5 x10^3/uL (0.0-1.1) Eosinophils # (Auto) 0.0 x10^3/uL (0.0-0.7) Basophils # (Auto) 0.0 x10^3/uL (0.0-0.2) Sodium Level 142 mmol/L (136-145) Potassium Level 3.7 mmol/L (3.5-5.1) Chloride Level 109 mmol/L (98-107) Carbon Dioxide Level 27 mmol/L (21-32) Anion Gap 6 (6-14) Blood Urea Nitrogen 13 mg/dL (8-26) Creatinine 1.3 mg/dL (0.7-1.3) Estimated GFR (Cockcroft-Gault) 55.4 Glucose Level 89 mg/dL (70-99) Calcium Level 8.1 mg/dL (8.5-10.1) Test 07/13/21 10:49 Glucose (Fingerstick) 96 mg/dL (70-99) Medications Active Scripts Medications Dose Route/Sig Max Daily Dose Days Date Category Effient (Prasugrel Hcl) 10 Mg Tablet 10 Mg PO DAILY 30 06/29/21 Rx Effient (Prasugrel Hcl) 10 Mg Tablet 1 Tab PO DAILY 30 06/29/21 Rx Amiodarone Hcl 200 Mg Tablet 400 Mg PO DAILY 30 06/29/21 Rx Entresto 97 mg-103 mg Tablet (Sacubitril/Valsartan) 1 Each Tablet 1 Each PO DAILY 03/09/19 Reported Aspir-Low (Aspirin) 81 Mg Tablet.dr 1 Tab PO DAILY 03/09/19 Reported Vitamin D (Cholecalciferol (Vitamin D3)) 1,000 Unit Capsule 1 Cap PO DAILY 03/09/19 Reported Spironolactone 25 Mg Tablet 0.5 Tab PO DAILY 03/09/19 Reported Sertraline Hcl 100 Mg Tablet 100 Mg PO DAILY 03/09/19 Reported Omeprazole 20 Mg Capsule.dr 1 Cap PO DAILY 03/09/19 Reported Toprol Xl (Metoprolol Succinate) 100 Mg Tab.er.24h 1 Tab PO DAILY 03/09/19 Reported Digoxin 125 Mcg Tablet 125 Mcg PO DAILY 03/09/19 Reported Atorvastatin Calcium 80 Mg Tablet 80 Mg PO HS 03/09/19 Reported Impression . IMPRESSION: 1. Acute respiratory failure secondary to acute systolic and diastolic congestive heart failure, rule out pneumonia, aspiration. 2. Abnormal chest x-ray. 3. Acute systolic and diastolic congestive heart failure. 4. Coronary artery disease. 5. Question maria guadalupe pneumonia, aspiration. 6. Acute kidney injuryon CKD baseline cr. 1.4 7. His rapid COVID testing at [facility] was negative. 8. History of ventricular fibrillation arrest on 06/09/2021, status post percutaneous coronary intervention to RCA 9. Cardiomyopathy with ejection fraction 20%. 10. Secondary pulmonary hypertension due to acute systolic and diastolic congestive heart failure. 11. Chronic obstructive pulmonary disease. Plan . Updated 07/13/2021 Patient extubated 07/11, now on room air Follow cardiology recommendations, EF 20%, status post recent MD with PCI to RCA, Follow cardiology recommendations.on dobutamine gtt Ongoing diuresis, monitor renal function Continue empiric antibiotics off pressors PT/OT/ST DVT/GI prophylaxis: Lovenox Discussed with RN and RT Updated 07/12/2021 Continue current nasal cannula. Patient extubated 07/11. Follow chest x-ray/ABG make changes as needed Follow cardiology recommendations, EF 20%, status post recent MD with PCI to RCA, Remains on Levophed and dobutamine was added. Follow cardiology recom mendations. Ongoing diuresis, monitor renal function Continue empiric antibiotics, currently on Zyvox Continue vasopressor medications to keep MAP greater than 65 Nutritional support DVT/GI prophylaxis: Lovenox Discussed with RN and RT Updated 07/11/2021 Continue current ventilatory support, 28/450/40/5 Follow chest x-ray/ABG make changes as needed Follow cardiology recommendations, EF 20%, status post recent MD with PCI to RCA, Ongoing diuresis, monitor renal function Continue empiric antibiotics, currently on Zyvox Continue vasopressor medications to keep MAP greater than 65 Nutritional support DVT/GI prophylaxis: Lovenox Discussed with RN and RT addend: Pt did better with CPAP trial in the afternoon. ABG adequate. Following commands .Will proceed with extubation. Message left for . CC time 30 minutes ANALISA MCKEON MD Jul 13, 2021 12:19
--- NOTE | 2021-07-13 12:52 | PDOC ---
[employer] PROGRESS NOTE Date of Service DOS: DATE: 07/13/21 TIME: 12:50 Chief Complaint Chief Complaint Sepsis Acute respiratory failure with hypoxia Hospital-acquired pneumonia due to gram-positive or possible gram-negative organism Recent NSTEMI s/p cardiac cath with stent Systolic CHF exacerbation requiring dobutamine drip DM2 with hyperglycemia Pulmonary hypertension S/p COVID-19 pneumonia - recovered Plan: To new ICU care while on dobutamine drip Consultation placed to pulmonology Basic lab work pending, including CRP, procalcitonin. Will cover for HAP with cefepime and Vancomycin; MRSA PCR pending, de-escalate vancomycin if MRSA negative. Diuresis with Lasix Renal function from 06/30/2021 showed creatinine 1.4, EGFR 50.9 Provide gentle IV fluids; hold ZACH-I for now. Basal insulin with HDSS; FEN - NPO PPX - Heparin FULL CODE Dispo - inpatient for above No surrogate decision maker named at this time due to clinical condition History of Present Illness History of Present Illness 65-year-old male with past medical history systolic CHF, recent COVID-19, recent NSTEMI, who presents as a transfer from ER due to acute respiratory distress. Patient was recently discharged 10 days ago after being treated inpatient for NSTEMI and COVID-19 pneumonia. At that time he had cardiac catheterization that showed severe three-vessel coronary artery disease with culprit lesion from the acute stent thrombosis of the distal RCA stent. He was treated with successful angioplasty of distal RCA stent, and was subseq uently found to be COVID-19 positive. After he recovered from COVID-19 he was discharged home with [place] [facility]. Last night he presented to [facility] ER in respiratory distress. EMS has been contacted to his place of residence and upon arrival patient was in acute respiratory distress saturating in the 70s. He was placed on BiPAP but continued to decline from respiratory standpoint requiring intubation. Labs on admission from [facility] ER showed WBC 12.7, hemoglobin 11.8, hematocrit 37.6, creatinine 1.7, CBG 331, troponin 0.069, BNP 14,201, albumin 2.8. EKG with multiple abnormalities but no STEMI. Chest x-ray showed significant bilateral multifocal opacities suggestive of edema versus infection. Blood cultures were taken and he received IV fluids, and broad- spectrum IV antibiotics. He was transferred to [facility] for further medical management. 07/11/2021 No acute events overnight. Afebrile. Hypotension requiring Levophed support. Saturating 97% on minimal vent settings at 24/450/40/50. Patient's chart, labs, images were reviewed and discussed with RN. A total of 35 minutes of critical care time was spent in reviewing chart, labs, and images. Discussed with RN and SW. 07/12/21 No acute events overnight. Patient saturating 96% on room air. Patient extubated yesterday not requiring to go back on BiPAP or O2 required only about 3 l nasal cannula at most. Patient's chart, labs, images were reviewed and discussed with RN 07/13/2021 No acute events overnight. Patient saturating 93% on room air. Failed swallow study and require video swallow study test today. Will attempt aspirin n.p.o. per cardiology and start with Lasix therapy if blood pressure remains stable while on dobutamine. Patient's chart, labs, images were reviewed and discussed with RN A total of 32 minutes of critical care time was spent in reviewing chart, labs, and images. Discussed with RN and SW. Vitals/I&O Vitals/I&O: Vital Signs Date Time Temp Pulse Resp B/P (MAP) Pulse Ox O2 Delivery O2 Flow Rate FiO2 07/13/21 10:47 98.5 84 17 131/64 (86) 97 Room Air 98.5 07/12/21 10:00 2.0 I & O 07/12/21 07/12/21 07/13/21 15:00 23:00 07:00 Intake Total 1765 ml 185 ml Output Total 1900 ml 1015 ml 350 ml Balance -1900 ml 750 ml -165 ml Physical Exam General: Alert, Oriented X3, Cooperative Heart: Regular rate Lungs: Crackles Abdomen: No tenderness Extremities: No edema Skin: No rashes Labs Labs: Laboratory Tests Test 07/12/21 18:19 07/12/21 22:40 07/13/21 05:15 07/13/21 05:18 Glucose (Fingerstick) 87 mg/dL (70-99) 88 mg/dL (70-99) 91 mg/dL (70-99) White Blood Count 5.1 x10^3/uL (4.0-11.0) Red Blood Count 2.82 x10^6/uL (4.30-5.70) Hemoglobin 8.9 g/dL (13.0-17.5) Hematocrit 26.1 % (39.0-53.0) Mean Corpuscular Volume 93 fL (79-100) Mean Corpuscular Hemoglobin 32 pg (25-35) Mean Corpuscular Hemoglobin Concent 34 g/dL (31-37) Red Cell Distribution Width 15.6 % (11.5-14.5) Platelet Count 136 x10^3/uL (140-400) Neutrophils (%) (Auto) 76 % (31-73) Lymphocytes (%) (Auto) 13 % (24-48) Monocytes (%) (Auto) 10 % (0-9) Eosinophils (%) (Auto) 1 % (0-3) Basophils (%) (Auto) 1 % (0-3) Neutrophils # (Auto) 3.9 x10^3/uL (1.8-7.7) Lymphocytes # (Auto) 0.7 x10^3/uL (1.0-4.8) Monocytes # (Auto) 0.5 x10^3/uL (0.0-1.1) Eosinophils # (Auto) 0.0 x10^3/uL (0.0-0.7) Basophils # (Auto) 0.0 x10^3/uL (0.0-0.2) Sodium Level 142 mmol/L (136-145) Potassium Level 3.7 mmol/L (3.5-5.1) Chloride Level 109 mmol/L (98-107) Carbon Dioxide Level 27 mmol/L (21-32) Anion Gap 6 (6-14) Blood Urea Nitrogen 13 mg/dL (8-26) Creatinine 1.3 mg/dL (0.7-1.3) Estimated GFR (Cockcroft-Gault) 55.4 Glucose Level 89 mg/dL (70-99) Calcium Level 8.1 mg/dL (8.5-10.1) Test 07/13/21 10:49 Glucose (Fingerstick) 96 mg/dL (70-99) Comment Review of Relevant I have reviewed the following items maria guadalupe (where applicable) has been applied. Medications: Current Medications Medications (Trade) Dose Ordered Sig/[place] Route PRN Reason Start Time Stop Time Status Last Admin Dose Admin Aspirin (Aspirin Rectal Supp) 300 mg PRN DAILY PRN [place] CAD 07/12/21 15:00 07/13/21 08:29 Digoxin (Lanoxin) 125 mcg 1X ONCE IV 07/12/21 15:00 07/12/21 15:15 DC 07/12/21 15:45 Justifications for Admission Other Justification ILA FIELDS MD Jul 13, 2021 12:52
[2021-07-13] MEDS ORDERED: DIGOXIN IV 500 MCG/2 ML AMPUL. IV ONE (14:30)
--- NOTE | 2021-07-13 15:30 | NUR ---
SS following up with discharge planning. SS reviewed pt chart and discussed with pt RN. Pt is extubated and currently on room air. COVID19 negative. Pt on IV Cefepime and IV Lasix. NPO. ST following. Pt is current on services with [facility], ; fax [phone]. SS will continue to follow for discharge planning.
[2021-07-13 15:41] VITALS: BP 128/81
[2021-07-13 19:00] VITALS: BP 119/69
[2021-07-13] MEDS: ATORVASTATIN CALCIUM 40 MG TABLET. PO SCH ×2 (20:36→20:53)
[2021-07-13] MEDS ORDERED: NITROGLYCERIN SUBLINGUAL 0.4 MG BOTTLE OF 25. SL ONE (22:55)
[2021-07-13 23:00] VITALS: BP 99/61
--- NOTE | 2021-07-13 23:09 | EKG ---
[facility] [address] [place] [address] Test Date: 2021-07-13 Test Time: 23:08:37 Pat Name: ISSAC NORIEGA Department: Room: 116 1 Gender: M [employer]: ERLIN : 1955 Requested By: ELMER MARTIN Order Number: [id number] Reading MD: Measurements Intervals [place] Rate: 127 P: NC: QRS: 27 QRSD: 72 T: 143 QT: 336 QTc: 494 Interpretive Statements IRREGULAR RHYTHM, NO P-WAVE FOUND LOW LIMB LEAD VOLTAGE QRS(T) CONTOUR ABNORMALITY CONSIDER ANTEROSEPTAL MYOCARDIAL DAMAGE ST & T ABNORMALITY, CONSIDER RECENT LATERAL MYOCARDIAL OR PERICARDIAL DAMAGE INFEROLATERAL MYOCARDIAL OR PERICARDIAL DAMAGE ABNORMAL ECG RI6.01 Compared to ECG 06/25/2021 00:10:12 Sinus rhythm no longer present Prolonged QT interval no longer present T-wave abnormality still present
[2021-07-13 23:16] LABS: CREATININE 1.6 mg/dL (0.7-1.3); GFR 43.6; MAGNESIUM 2.5 mg/dL (1.8-2.4); POTASSIUM 4.2 mmol/L (3.5-5.1)
[2021-07-13] MEDS ORDERED: AMIODARONE 450 MG in IV DEXTROSE 5% 250 ML IV ONE (23:30)
[2021-07-13] MEDS ORDERED: AMIODARONE 150 MG in IV DEXTROSE 5% 100ML 100 ML IV ONE (23:30)
[2021-07-13] MEDS ORDERED: METOPROLOL IV PUSH 5 MG/5 ML VIAL. IVP ONE (23:30)
--- NOTE | 2021-07-13 23:32 | RAD ---
XR CHEST 1V Clinical History: Reason: RESP DISTRESS / Spl. Instructions: / History: Technique: AP view of the chest was obtained at 07/13/2021 11:17 PM. Comparison: July 11, 2021. Findings: The heart is moderately enlarged. There is patchy perihilar and linear opacities bilaterally. The rig ht jugular line and left sided pacemaker are again seen. The enteric tube and endotracheal tube have been removed. Impression: 1. Cardiomegaly. 2. Marked bilateral pulmonary infiltrates appears worse and could be CHF or atypical pneumonia. Electronically signed by: Ahmet Alcaraz III, MD (07/13/2021 11:29 PM) [facility]
[2021-07-14] VITALS (28 sets, daily range): BP systolic 56–151; BP diastolic 49–104
[2021-07-14] MEDS ORDERED: AMIODARONE 150 MG in IV DEXTROSE 5% 100ML 100 ML IV ONE
[2021-07-14] MEDS ORDERED: FUROSEMIDE 20 MG/2 ML VIAL. IVP ONE
[2021-07-14] MEDS ORDERED: METOPROLOL IV PUSH 5 MG/5 ML VIAL. IVP ONE
--- NOTE | 2021-07-14 00:11 | NUR ---
2299 patient became SOA and tachycardic. placed on NRB, stat EKG ordered, and stat chest xray. Notified Dr. Spear, orders received. Pt now on BIPAP 16 rate 20 100% FiO2. ABG ordered. will continue to monitor. Addendum: 07/14/21 at 0049 by DEMAR TIAN RN RN notified Dr. Armas of patient status, no orders received at this time. Will continue to monitor.
[2021-07-14 00:45] LABS: BASE EXCESS ABG -6 mmol/L (-3-3); HCO3 ABG 22 mmol/L (21-28); PCO2 ABG 50 mmHg (35-46); PO2 ABG 70 mmHg (65-108); SAT O2 ABG 89 % (92-99)
[2021-07-14 00:46] LABS: FIO2 ABG 100
[2021-07-14] MEDS: DEXMEDETOMIDINE 400 MCG in IV NORMAL SALINE 100ML 96 ML IV PRN ×2 (01:25→08:13)
[2021-07-14] MEDS: NOREPINEPHRINE VIAL 8 MG in IV DEXTROSE 5% 250 ML IV PRN ×2 (03:55→10:45)
[2021-07-14 04:01] LABS: BASO % 0 % (0-3); EOS % 0 % (0-3); HEMATOCRIT 34.3 % (39.0-53.0); HEMOGLOBIN 11.1 g/dL (13.0-17.5); LYMPH # 0.3 x10^3/uL (1.0-4.8); LYMPH % 2 % (24-48); MEAN CORPUSCULAR HEMOGLOBIN 31 pg (25-35); MEAN CORPUSCULAR HGB CONC 33 g/dL (31-37); MEAN CORPUSCULAR VOLUME 94 fL (79-100); MONO # 0.6 x10^3/uL (0.0-1.1); MONO % 5 % (0-9); NEUT # 10.3 x10^3/uL (1.8-7.7); NEUT % 92 % (31-73); PLATELET COUNT 175 x10^3/uL (140-400); RED BLOOD COUNT 3.66 x10^6/uL (4.30-5.70); RED CELL DISTRIBUTION WIDTH 15.6 % (11.5-14.5); WHITE BLOOD COUNT 11.2 x10^3/uL (4.0-11.0)
[2021-07-14 04:12] LABS: CALCIUM 8.5 mg/dL (8.5-10.1); CREATININE 2.1 mg/dL (0.7-1.3); GFR 31.9; POTASSIUM 3.9 mmol/L (3.5-5.1)
[2021-07-14] MEDS ORDERED: AMIODARONE 450 MG in IV DEXTROSE 5% 250 ML IV PRN (07:15)
[2021-07-14 07:23] LABS: BASE EXCESS ABG -3 mmol/L (-3-3); HCO3 ABG 20 mmol/L (21-28); PCO2 ABG 27 mmHg (35-46); PO2 ABG 55 mmHg (65-108); SAT O2 ABG 88 % (92-99)
[2021-07-14 07:25] LABS: FIO2 ABG 30
[2021-07-14] MEDS: ASPIRIN CHEWABLE 81 MG TABLET. PO SCH (08:00)
[2021-07-14] MEDS: FUROSEMIDE 20 MG/2 ML VIAL. IVP SCH (08:04)
[2021-07-14] MEDS: SPIRONOLACTONE 25 MG TABLET PO SCH (08:15)
[2021-07-14] MEDS: DIGOXIN 125 MCG TABLET. PO SCH (08:15)
[2021-07-14] MEDS: AMIODARONE HCL 200 MG TABLET. PO SCH (08:15)
[2021-07-14] MEDS: PRASUGREL 10 MG TABLET. PO SCH (08:15)
[2021-07-14] MEDS: ELECTROLYTE (ICU) PROTOCOL. MC SCH (08:22)
[2021-07-14] MEDS: CEFEPIME HCL IV Push 2 GM VIAL. IVP SCH (08:33)
[2021-07-14] MEDS: PANTOPRAZOLE IV PUSH 40 MG VIAL. IVP SCH (08:33)
[2021-07-14 09:00] LABS: ALBUMIN 2.6 g/dL (3.4-5.0); DIRECT BILIRUBIN 0.1 mg/dL (0.0-0.2); TOTAL BILIRUBIN 0.4 mg/dL (0.2-1.0); TOTAL PROTEIN 5.7 g/dL (6.4-8.2)
[2021-07-14] MEDS ORDERED: METOPROLOL IV PUSH 5 MG/5 ML VIAL. IVP SCH (10:00)
[2021-07-14] MEDS ORDERED: ETOMIDATE 20 MG/10 ML VIAL. IV ONE (10:04)
[2021-07-14] MEDS ORDERED: SUCCINYLCHOLINE 200 MG/10 ML VIAL. ONE (10:04)
[2021-07-14] MEDS ORDERED: PROPOFOL 100 ML IV PRN ×2 (10:15→16:30)
[2021-07-14] MEDS ORDERED: PROPOFOL 10 MG/ML (20ML) VIAL. IV ONE (10:15)
[2021-07-14] MEDS ORDERED: SUCCINYLCHOLINE 200 MG/10 ML VIAL. IV ONE (10:15)
[2021-07-14] MEDS ORDERED: MIDAZOLAM 100mg/100ml NS BAG 100 ML IV PRN ×2 (10:15→16:30)
[2021-07-14] MEDS ORDERED: MIDAZOLAM HCL/PF 5 MG/5 ML VIAL. ONE (10:21)
[2021-07-14] MEDS: MIDAZOLAM 100mg/100ml NS BAG 100 ML IV PRN (10:34)
--- NOTE | 2021-07-14 10:35 | NUR ---
At 1009 patient intubated requiring rapid titration of versed d/t non-compliance with ventilator. Starting rate at 5 and patient stabilized at 5 with a RASS score of -2. Versed gtt currently infusing at 5. Max rate during this time was of Versed during charting block and ended at 1040 . Patient in rhythm, HR-82 , [id number]
--- NOTE | 2021-07-14 10:46 | RAD ---
XR CHEST 1V 10:06 AM CLINICAL INDICATIONS: Respiratory distress,VERIFY ET TUBE placement. COMPARISON: July 13, 2021. Findings: ET tube has been placed and the tube tip is located 4 cm above the level of the andrae. Rig ht IJ central line is unchanged in position. Bipolar atrioventricular pacemaker is again noted. No pn eumothorax is seen. Diffuse bilateral lung infiltrates or pulmonary edema are again evident. This is unchanged on the right side. There is improvement in the left upper lobe. Heart size is prominent but stable. Mediastinum is unchanged. Impression: Bilateral lung infiltrates, stable on the right side, improvement within the left upper l obe. ET tube placement with tip located 4 cm above the level of the andrae. Electronically signed by: Ok Vallejo MD (07/14/2021 10:44 AM) [id number]
[2021-07-14] MEDS ORDERED: VECURONIUM BOLUS 10 MG VIAL. IV ONE ×2 (10:48→12:15)
[2021-07-14 11:31] LABS: BASE EXCESS COOX -7 mmol/L (-3-3); HCO3 COOX 21 mmol/L (21-28); METHEMOGLOBIN 0.4 % (0.0-1.9); OXYHEMOGLOBIN 94.2 %; PCO2 COOX 50 mmHg (35-46); PO2 COOX 90 mmHg (65-108); SAT O2 COOX 95 % (92-99)
[2021-07-14] MEDS: PROPOFOL 100 ML IV PRN (11:55)
[2021-07-14] MEDS ORDERED: VECURONIUM BROMIDE 50 MG in IV NORMAL SALINE 50ML 50 ML IV PRN (12:15)
--- NOTE | 2021-07-14 12:15 | PDOC ---
PULMONARY PROGRESS NOTES DATE: 07/14/21 TIME: 12:08 Subjective Patient was extubated 07/11/2021, has clinically decompensated overnight, now hypoxic, tachycardic, hypotensive and diaphoretic Patient had arrhythmias overnight, noted by cardiology and patient was placed on BiPAP as well Vitals Vital Signs Date Time Temp Pulse Resp B/P (MAP) Pulse Ox O2 Delivery O2 Flow Rate FiO2 07/14/21 11:51 97 Ventilator 07/14/21 09:52 127 129/92 07/14/21 06:45 14 07/13/21 23:00 98.8 98.8 Comments Unable to report review of systems secondary to current clinical state General: Alert, No acute distress HEENT: Other (Intubated) Lungs: Crackles Cardiovascular: S1, S2 Abdomen: Soft Extremities: No Edema Labs Laboratory Tests Test 07/12/21 12:15 07/12/21 18:19 07/12/21 22:40 07/13/21 05:15 Glucose (Fingerstick) 92 mg/dL (70-99) 87 mg/dL (70-99) 88 mg/dL (70-99) White Blood Count 5.1 x10^3/uL (4.0-11.0) Red Blood Count 2.82 x10^6/uL (4.30-5.70) Hemoglobin 8.9 g/dL (13.0-17.5) Hematocrit 26.1 % (39.0-53.0) Mean Corpuscular Volume 93 fL (79-100) Mean Corpuscular Hemoglobin 32 pg (25-35) Mean Corpuscular Hemoglobin Concent 34 g/dL (31-37) Red Cell Distribution Width 15.6 % (11.5-14.5) Platelet Count 136 x10^3/uL (140-400) Neutrophils (%) (Auto) 76 % (31-73) Lymphocytes (%) (Auto) 13 % (24-48) Monocytes (%) (Auto) 10 % (0-9) Eosinophils (%) (Auto) 1 % (0-3) Basophils (%) (Auto) 1 % (0-3) Neutrophils # (Auto) 3.9 x10^3/uL (1.8-7.7) Lymphocytes # (Auto) 0.7 x10^3/uL (1.0-4.8) Monocytes # (Auto) 0.5 x10^3/uL (0.0-1.1) Eosinophils # (Auto) 0.0 x10^3/uL (0.0-0.7) Basophils # (Auto) 0.0 x10^3/uL (0.0-0.2) Sodium Level 142 mmol/L (136-145) Potassium Level 3.7 mmol/L (3.5-5.1) Chloride Level 109 mmol/L (98-107) Carbon Dioxide Level 27 mmol/L (21-32) Anion Gap 6 (6-14) Blood Urea Nitrogen 13 mg/dL (8-26) Creatinine 1.3 mg/dL (0.7-1.3) Estimated GFR (Cockcroft-Gault) 55.4 Glucose Level 89 mg/dL (70-99) Calcium Level 8.1 mg/dL (8.5-10.1) Test 07/13/21 05:18 07/13/21 10:49 07/13/21 22:45 07/13/21 22:50 Glucose (Fingerstick) 91 mg/dL (70-99) 96 mg/dL (70-99) 128 mg/dL (70-99) Sodium Level 138 mmol/L (136-145) Potassium Level 4.2 mmol/L (3.5-5.1) Chloride Level 103 mmol/L (98-107) Carbon Dioxide Level 23 mmol/L (21-32) Anion Gap 12 (6-14) Blood Urea Nitrogen 14 mg/dL (8-26) Creatinine 1.6 mg/dL (0.7-1.3) Estimated GFR (Cockcroft-Gault) 43.6 Glucose Level 154 mg/dL (70-99) Calcium Level 9.0 mg/dL (8.5-10.1) Magnesium Level 2.5 mg/dL (1.8-2.4) Test 07/14/21 00:11 07/14/21 03:45 07/14/21 07:05 07/14/21 11:10 O2 Saturation 89 % (92-99) 88 % (92-99) 95 % (92-99) Arterial Blood pH 7.25 (7.35-7.45) 7.48 (7.35-7.45) 7.24 (7.35-7.45) Arterial Blood pCO2 at Patient Temp 50 mmHg (35-46) 27 mmHg (35-46) 50 mmHg (35-46) Arterial Blood pO2 at Patient Temp 70 mmHg (65-108) 55 mmHg (65-108) 90 mmHg (65-108) Arterial Blood HCO3 22 mmol/L (21-28) 20 mmol/L (21-28) 21 mmol/L (21-28) Arterial Blood Base Excess -6 mmol/L (-3-3) -3 mmol/L (-3-3) -7 mmol/L (-3-3) FiO2 100 30 100 White Blood Count 11.2 x10^3/uL (4.0-11.0) Red Blood Count 3.66 x10^6/uL (4.30-5.70) Hemoglobin 11.1 g/dL (13.0-17.5) Hematocrit 34.3 % (39.0-53.0) Mean Corpuscular Volume 94 fL (79-100) Mean Corpuscular Hemoglobin 31 pg (25-35) Mean Corpuscular Hemoglobin Concent 33 g/dL (31-37) Red Cell Distribution Width 15.6 % (11.5-14.5) Platelet Count 175 x10^3/uL (140-400) Neutrophils (%) (Auto) 92 % (31-73) Lymphocytes (%) (Auto) 2 % (24-48) Monocytes (%) (Auto) 5 % (0-9) Eosinophils (%) (Auto) 0 % (0-3) Basophils (%) (Auto) 0 % (0-3) Neutrophils # (Auto) 10.3 x10^3/uL (1.8-7.7) Lymphocytes # (Auto) 0.3 x10^3/uL (1.0-4.8) Monocytes # (Auto) 0.6 x10^3/uL (0.0-1.1) Eosinophils # (Auto) 0.0 x10^3/uL (0.0-0.7) Basophils # (Auto) 0.0 x10^3/uL (0.0-0.2) Sodium Level 138 mmol/L (136-145) Potassium Level 3.9 mmol/L (3.5-5.1) Chloride Level 103 mmol/L (98-107) Carbon Dioxide Level 26 mmol/L (21-32) Anion Gap 9 (6-14) Blood Urea Nitrogen 19 mg/dL (8-26) Creatinine 2.1 mg/dL (0.7-1.3) Estimated GFR (Cockcroft-Gault) 31.9 Glucose Level 141 mg/dL (70-99) Calcium Level 8.5 mg/dL (8.5-10.1) Total Bilirubin 0.4 mg/dL (0.2-1.0) Direct Bilirubin 0.1 mg/dL (0.0-0.2) Aspartate Amino Transf (AST/SGOT) 31 U/L (15-37) Alanine Aminotransferase (ALT/SGPT) 22 U/L (16-63) Alkaline Phosphatase 66 U/L (46-116) Troponin I Quantitative 1.705 ng/mL (0.000-0.055) HU-Ups-D-Type Natriuretic Peptide > 48413 pg/mL (0-124) Total Protein 5.7 g/dL (6.4-8.2) Albumin 2.6 g/dL (3.4-5.0) Oxyhemoglobin 94.2 % Methemoglobin 0.4 % (0.0-1.9) Carbon Monoxide, Quantitative 0.3 % (0.0-1.9) Laboratory Tests Test 07/13/21 22:45 07/13/21 22:50 07/14/21 00:11 07/14/21 03:45 Sodium Level 138 mmol/L (136-145) 138 mmol/L (136-145) Potassium Level 4.2 mmol/L (3.5-5.1) 3.9 mmol/L (3.5-5.1) Chloride Level 103 mmol/L (98-107) 103 mmol/L (98-107) Carbon Dioxide Level 23 mmol/L (21-32) 26 mmol/L (21-32) Anion Gap 12 (6-14) 9 (6-14) Blood Urea Nitrogen 14 mg/dL (8-26) 19 mg/dL (8-26) Creatinine 1.6 mg/dL (0.7-1.3) 2.1 mg/dL (0.7-1.3) Estimated GFR (Cockcroft-Gault) 43.6 31.9 Glucose Level 154 mg/dL (70-99) 141 mg/dL (70-99) Calcium Level 9.0 mg/dL (8.5-10.1) 8.5 mg/dL (8.5-10.1) Magnesium Level 2.5 mg/dL (1.8-2.4) Glucose (Fingerstick) 128 mg/dL (70-99) O2 Saturation 89 % (92-99) Arterial Blood pH 7.25 (7.35-7.45) Arterial Blood pCO2 at Patient Temp 50 mmHg (35-46) Arterial Blood pO2 at Patient Temp 70 mmHg (65-108) Arterial Blood HCO3 22 mmol/L (21-28) Arterial Blood Base Excess -6 mmol/L (-3-3) FiO2 100 White Blood Count 11.2 x10^3/uL (4.0-11.0) Red Blood Count 3.66 x10^6/uL (4.30-5.70) Hemoglobin 11.1 g/dL (13.0-17.5) Hematocrit 34.3 % (39.0-53.0) Mean Corpuscular Volume 94 fL (79-100) Mean Corpuscular Hemoglobin 31 pg (25-35) Mean Corpuscular Hemoglobin Concent 33 g/dL (31-37) Red Cell Distribution Width 15.6 % (11.5-14.5) Platelet Count 175 x10^3/uL (140-400) Neutrophils (%) (Auto) 92 % (31-73) Lymphocytes (%) (Auto) 2 % (24-48) Monocytes (%) (Auto) 5 % (0-9) Eosinophils (%) (Auto) 0 % (0-3) Basophils (%) (Auto) 0 % (0-3) Neutrophils # (Auto) 10.3 x10^3/uL (1.8-7.7) Lymphocytes # (Auto) 0.3 x10^3/uL (1.0-4.8) Monocytes # (Auto) 0.6 x10^3/uL (0.0-1.1) Eosinophils # (Auto) 0.0 x10^3/uL (0.0-0.7) Basophils # (Auto) 0.0 x10^3/uL (0.0-0.2) Total Bilirubin 0.4 mg/dL (0.2-1.0) Direct Bilirubin 0.1 mg/dL (0.0-0.2) Aspartate Amino Transf (AST/SGOT) 31 U/L (15-37) Alanine Aminotransferase (ALT/SGPT) 22 U/L (16-63) Alkaline Phosphatase 66 U/L (46-116) Troponin I Quantitative 1.705 ng/mL (0.000-0.055) EJ-Ish-W-Type Natriuretic Peptide > 87733 pg/mL (0-124) Total Protein 5.7 g/dL (6.4-8.2) Albumin 2.6 g/dL (3.4-5.0) Test 07/14/21 07:05 07/14/21 11:10 O2 Saturation 88 % (92-99) 95 % (92-99) Arterial Blood pH 7.48 (7.35-7.45) 7.24 (7.35-7.45) Arterial Blood pCO2 at Patient Temp 27 mmHg (35-46) 50 mmHg (35-46) Arterial Blood pO2 at Patient Temp 55 mmHg (65-108) 90 mmHg (65-108) Arterial Blood HCO3 20 mmol/L (21-28) 21 mmol/L (21-28) Arterial Blood Base Excess -3 mmol/L (-3-3) -7 mmol/L (-3-3) FiO2 30 100 Oxyhemoglobin 94.2 % Methemoglobin 0.4 % (0.0-1.9) Carbon Monoxide, Quantitative 0.3 % (0.0-1.9) Medications Active Scripts Medications Dose Route/Sig Max Daily Dose Days Date Category Effient (Prasugrel Hcl) 10 Mg Tablet 10 Mg PO DAILY 06/29/21 Rx Effient (Prasugrel Hcl) 10 Mg Tablet 1 Tab PO DAILY 30 06/29/21 Rx Amiodarone Hcl 200 Mg Tablet 400 Mg PO DAILY 30 06/29/21 Rx Entresto 97 mg-103 mg Tablet (Sacubitril/Valsartan) 1 Each Tablet 1 Each PO DAILY 03/09/19 Reported Aspir-Low (Aspirin) 81 Mg Tablet.dr 1 Tab PO DAILY 03/09/19 Reported Vitamin D (Cholecalciferol (Vitamin D3)) 1,000 Unit Capsule 1 Cap PO DAILY 03/09/19 Reported Spironolactone 25 Mg Tablet 0.5 Tab PO DAILY 03/09/19 Reported Sertraline Hcl 100 Mg Tablet 100 Mg PO DAILY 03/09/19 Reported Omeprazole 20 Mg Capsule.dr 1 Cap PO DAILY 03/09/19 Reported Toprol Xl (Metoprolol Succinate) 100 Mg Tab.er.24h 1 Tab PO DAILY 03/09/19 Reported Digoxin 125 Mcg Tablet 125 Mcg PO DAILY 03/09/19 Reported Atorvastatin Calcium 80 Mg Tablet 80 Mg PO HS 03/09/19 Reported Impression . IMPRESSION: 1. Acute respiratory failure secondary to acute systolic and diastolic congestive heart failure, rule out pneumonia, aspiration.--Worsening 2. Abnormal chest x-ray. 3. Acute systolic and diastolic congestive heart failure. 4. Coronary artery disease. 5. Question maria guadalupe pneumonia, aspiration. 6. Acute kidney injuryon CKD baseline cr. 1.4 7. His rapid COVID testing at [facility] was negative. 8. History of ventricular fibrillation arrest on 06/09/2021, status post percutaneous coronary intervention to RCA 9. Cardiomyopathy with ejection fraction 20%. 10. Secondary pulmonary hypertension due to acute systolic and diastolic congestive heart failure. 11. Chronic obstructive pulmonary disease. Plan . Updated 07/14/2021 Patient extubated 07/11, clinically decompensated overnight requiring BiPAP and vasopressors medication, tachypneic, diaphoretic, and hypotensive despite vasopressor medications on examination today, the patient is in acute distress we will proceed with intubation Sedation, as needed paralytics Obtain EKG and troponin Follow chest x-ray and ABG--x-ray demonstrates diffuse pulmonary edema, ABG reviewed, wean FiO2, increased respiratory rate to 24 Follow cardiology recommendations, EF 20%, status post recent OH with PCI to RCA, discussed the case with cardiology, plan to go to the [employer] [facility] today at 1 PM vasopressor medications to keep MAP greater than 65 Ongoing diuresis, monitor renal function--worsening REYNALDO in the setting of needing ongoing diuresis, consult nephrology Continue empiric antibiotics DVT/GI prophylaxis: Lovenox Discussed with RN and RT Patient is full code JANE ZURITA DUSTLESS OPERATOR Jul 14, 2021 12:15
[2021-07-14] MEDS ORDERED: LIDOCAINE 1% Multi-Dose 20 ML VIAL. ONE (12:21)
[2021-07-14] MEDS ORDERED: IODIXANOL 320 MG/ML 100 ML VIAL. ONE (12:21)
[2021-07-14] MEDS ORDERED: NOREPINEPHRINE VIAL 32 MG in IV DEXTROSE 5% 218 ML IV PRN (12:30)
[2021-07-14] MEDS ORDERED: NITROGLYCERIN 200 MCG/2 ML SYRINGE FOR CATH/VASC LAB. ONE (12:32)
[2021-07-14] MEDS ORDERED: PHENYLEPHRINE in 0.9% NACL PF 1 MG/10 ML SYRINGE. IV ONE ×2 (13:00→13:02)
[2021-07-14] MEDS ORDERED: IODIXANOL 320 MG/ML 100 ML VIAL. IART ONE (13:15)
[2021-07-14] MEDS ORDERED: LIDOCAINE 1% Multi-Dose 20 ML VIAL. INJ ONE (13:15)
[2021-07-14] MEDS ORDERED: HEPARIN for IV BOLUS 10,000 UNIT/10 ML VIAL. ONE (13:30)
--- NOTE | 2021-07-14 13:40 | PDOC ---
[employer] PROGRESS NOTE Date of Service DOS: DATE: 07/14/21 TIME: 13:38 Chief Complaint Chief Complaint Sepsis Acute respiratory failure with hypoxia Hospital-acquired pneumonia due to gram-positive or possible gram-negative organism Recent NSTEMI s/p cardiac cath with stent Systolic CHF exacerbation requiring dobutamine drip DM2 with hyperglycemia Pulmonary hypertension S/p COVID-19 pneumonia - recovered Plan: To new ICU care while on dobutamine drip Consultation placed to pulmonology Basic lab work pending, including CRP, procalcitonin. Will cover for HAP with cefepime and Vancomycin; MRSA PCR pending, de-escalate vancomycin if MRSA negative. Diuresis with Lasix Renal function from 06/30/2021 showed creatinine 1.4, EGFR 50.9 Provide gentle IV fluids; hold ZACH-I for now. Basal insulin with HDSS; FEN - NPO PPX - Heparin FULL CODE Dispo - inpatient for above No surrogate decision maker named at this time due to clinical condition History of Present Illness History of Present Illness 65-year-old male with past medical history systolic CHF, recent COVID-19, recent NSTEMI, who presents as a transfer from [facility] ER due to acute respiratory distress. Patient was recently discharged 10 days ago after being treated inpatient for NSTEMI and COVID-19 pneumonia. At that time he had cardiac catheterization that showed severe three-vessel coronary artery disease with culprit lesion from the acute stent thrombosis of the distal RCA stent. He was treated with successful angioplasty of distal RCA stent, and was subseq uently found to be COVID-19 positive. After he recovered from COVID-19 he was discharged home with [place] home health. Last night he presented to [facility] ER in respiratory distress. EMS has been contacted to his place of residence and upon arrival patient was in acute respiratory distress saturating in the 70s. He was placed on BiPAP but continued to decline from respiratory standpoint requiring intubation. Labs on admission from [facility] ER showed WBC 12.7, hemoglobin 11.8, hematocrit 37.6, creatinine 1.7, CBG 331, troponin 0.069, BNP 14,201, albumin 2.8. EKG with multiple abnormalities but no STEMI. Chest x-ray showed significant bilateral multifocal opacities suggestive of edema versus infection. Blood cultures were taken and he received IV fluids, and broad- spectrum IV antibiotics. He was transferred to [facility] for further medical management. 07/11/2021 No acute events overnight. Afebrile. Hypotension requiring Levophed support. Saturating 97% on minimal vent settings at 24/450/40/50. Patient's chart, labs, images were reviewed and discussed with RN. A total of 35 minutes of critical care time was spent in reviewing chart, labs, and images. Discussed with RN and SW. 07/12/21 No acute events overnight. Patient saturating 96% on room air. Patient extubated yesterday not requiring to go back on BiPAP or O2 required only about 3 l nasal cannula at most. Patient's chart, labs, images were reviewed and discussed with RN 07/13/2021 No acute events overnight. Patient saturating 93% on room air. Failed swallow study and require video swallow study test today. Will attempt aspirin n.p.o. per cardiology and start with Lasix therapy if blood pressure remains stable while on dobutamine. Patient's chart, labs, images were reviewed and discussed with RN A total of 32 minutes of critical care time was spent in reviewing chart, labs, and images. Discussed with RN and SW. 07/14/2021 Patient with a decompensation overnight with worsening O2 saturations requiring BiPAP at FiO2 of 60%. Continues to be hypotensive despite vasopressors and rhythm control medications. Patient this morning was doing okay on the BiPAP but started become more tachypneic and diaphoretic and remains hypotensive. Eventually patient was intubated. Patient will go to [facility] today at 1:00 with cardiology. Patient's chart, labs, images were reviewed and discussed with RN A total of 40 minutes of critical care time was spent in reviewing chart, labs, and images. Discussed with RN and SW. Vitals/I&O Vitals/I&O: Vital Signs Date Time Temp Pulse Resp B/P (MAP) Pulse Ox O2 Delivery O2 Flow Rate FiO2 07/14/21 12:00 Mechanical Ventilator 07/14/21 11:51 97 07/14/21 09:52 127 129/92 07/14/21 06:45 14 07/13/21 23:00 98.8 98.8 I & O 07/13/21 07/13/21 07/14/21 15:00 23:00 07:00 Intake Total 0 ml 363.43 ml Output Total 950 ml 360 ml 185 ml Balance -950 ml -360 ml 178.43 ml Physical Exam General: Alert, Oriented X3, Cooperative Heart: Regular rate Lungs: Crackles Abdomen: No tenderness Extremities: No edema Skin: No rashes Labs Labs: Laboratory Tests Test 07/13/21 22:45 07/13/21 22:50 07/14/21 00:11 07/14/21 03:45 Sodium Level 138 mmol/L (136-145) 138 mmol/L (136-145) Potassium Level 4.2 mmol/L (3.5-5.1) 3.9 mmol/L (3.5-5.1) Chloride Level 103 mmol/L (98-107) 103 mmol/L (98-107) Carbon Dioxide Level 23 mmol/L (21-32) 26 mmol/L (21-32) Anion Gap 12 (6-14) 9 (6-14) Blood Urea Nitrogen 14 mg/dL (8-26) 19 mg/dL (8-26) Creatinine 1.6 mg/dL (0.7-1.3) 2.1 mg/dL (0.7-1.3) Estimated GFR (Cockcroft-Gault) 43.6 31.9 Glucose Level 154 mg/dL (70-99) 141 mg/dL (70-99) Calcium Level 9.0 mg/dL (8.5-10.1) 8.5 mg/dL (8.5-10.1) Magnesium Level 2.5 mg/dL (1.8-2.4) Glucose (Fingerstick) 128 mg/dL (70-99) O2 Saturation 89 % (92-99) Arterial Blood pH 7.25 (7.35-7.45) Arterial Blood pCO2 at Patient Temp 50 mmHg (35-46) Arterial Blood pO2 at Patient Temp 70 mmHg (65-108) Arterial Blood HCO3 22 mmol/L (21-28) Arterial Blood Base Excess -6 mmol/L (-3-3) FiO2 100 White Blood Count 11.2 x10^3/uL (4.0-11.0) Red Blood Count 3.66 x10^6/uL (4.30-5.70) Hemoglobin 11.1 g/dL (13.0-17.5) Hematocrit 34.3 % (39.0-53.0) Mean Corpuscular Volume 94 fL (79-100) Mean Corpuscular Hemoglobin 31 pg (25-35) Mean Corpuscular Hemoglobin Concent 33 g/dL (31-37) Red Cell Distribution Width 15.6 % (11.5-14.5) Platelet Count 175 x10^3/uL (140-400) Neutrophils (%) (Auto) 92 % (31-73) Lymphocytes (%) (Auto) 2 % (24-48) Monocytes (%) (Auto) 5 % (0-9) Eosinophils (%) (Auto) 0 % (0-3) Basophils (%) (Auto) 0 % (0-3) Neutrophils # (Auto) 10.3 x10^3/uL (1.8-7.7) Lymphocytes # (Auto) 0.3 x10^3/uL (1.0-4.8) Monocytes # (Auto) 0.6 x10^3/uL (0.0-1.1) Eosinophils # (Auto) 0.0 x10^3/uL (0.0-0.7) Basophils # (Auto) 0.0 x10^3/uL (0.0-0.2) Total Bilirubin 0.4 mg/dL (0.2-1.0) Direct Bilirubin 0.1 mg/dL (0.0-0.2) Aspartate Amino Transf (AST/SGOT) 31 U/L (15-37) Alanine Aminotransferase (ALT/SGPT) 22 U/L (16-63) Alkaline Phosphatase 66 U/L (46-116) Troponin I Quantitative 1.705 ng/mL (0.000-0.055) UI-Kmx-R-Type Natriuretic Peptide > 77029 pg/mL (0-124) Total Protein 5.7 g/dL (6.4-8.2) Albumin 2.6 g/dL (3.4-5.0) Test 07/14/21 07:05 07/14/21 11:10 O2 Saturation 88 % (92-99) 95 % (92-99) Arterial Blood pH 7.48 (7.35-7.45) 7.24 (7.35-7.45) Arterial Blood pCO2 at Patient Temp 27 mmHg (35-46) 50 mmHg (35-46) Arterial Blood pO2 at Patient Temp 55 mmHg (65-108) 90 mmHg (65-108) Arterial Blood HCO3 20 mmol/L (21-28) 21 mmol/L (21-28) Arterial Blood Base Excess -3 mmol/L (-3-3) -7 mmol/L (-3-3) FiO2 30 100 Oxyhemoglobin 94.2 % Methemoglobin 0.4 % (0.0-1.9) Carbon Monoxide, Quantitative 0.3 % (0.0-1.9) Comment Review of Relevant I have reviewed the following items maria guadalupe (where applicable) has been applied. Medications: Current Medications Medications (Trade) Dose Ordered Sig/Asia Route PRN Reason Start Time Stop Time Status Last Admin Dose Admin Digoxin (Lanoxin) 125 mcg 1X ONCE IV 07/13/21 14:30 07/13/21 14:31 DC 07/13/21 14:30 Amiodarone HCl 150 mg/Dextrose 103 ml @ 618 mls/hr 1X ONCE IV 07/13/21 23:30 07/13/21 23:39 DC 07/13/21 23:10 Metoprolol Tartrate (Lopressor Vial) 5 mg 1X ONCE IVP 07/13/21 23:30 07/13/21 23:31 DC 07/13/21 23:10 Amiodarone HCl 450 mg/Dextrose 259 ml @ 0 mls/hr 1X ONCE IV 07/13/21 23:30 07/13/21 23:31 DC 07/14/21 00:04 Amiodarone HCl 150 mg/Dextrose 103 ml @ 618 mls/hr 1X ONCE IV 07/14/21 00:00 07/14/21 00:09 DC 07/13/21 23:51 Metoprolol Tartrate (Lopressor Vial) 5 mg 1X ONCE IVP 07/14/21 00:00 07/14/21 00:01 DC 07/14/21 00:03 Furosemide (Lasix) 20 mg 1X ONCE IVP 07/14/21 00:00 07/14/21 00:01 DC 07/13/21 23:45 Metoprolol Tartrate (Lopressor Vial) 5 mg Q6HRS IVP 07/14/21 10:00 07/14/21 09:52 Succinylcholine Chloride (Anectine) 100 mg 1X ONCE IV 07/14/21 10:15 07/14/21 10:16 DC 07/14/21 10:19 Propofol (Diprivan) 100 mg 1X ONCE IV 07/14/21 10:15 07/14/21 10:16 DC 07/14/21 10:15 Fentanyl Citrate 30 ml @ 0 mls/hr CONT PRN IV SEE PROTOCOL 07/14/21 10:15 07/14/21 10:33 Phenylephrine HCl (PHENYLEPHRINE in 0.9% NACL PF) 1 mg 1X ONCE IV 07/14/21 13:00 07/14/21 13:12 DC 07/14/21 13:04 Justifications for Admission Other Justification ILA FIELDS MD Jul 14, 2021 13:40
[2021-07-14] MEDS ORDERED: FUROSEMIDE 100 MG/10 ML VIAL. IVP SCH (14:00)
[2021-07-14] MEDS ORDERED: HEPARIN for IV BOLUS 10,000 UNIT/10 ML VIAL. IART ONE (14:00)
--- NOTE | 2021-07-14 14:17 | CARD ---
MR#: [id number] Date of Study: 07/14/2021 Ordering Physician: URI SPEAR, Referring Physician: URI SPEAR, Tech: Chelsea Benitez RT(R)() APPROVED REPORT Technologist: Chelsea Benitez RT(R)() Nurse: Sondra Lindo RN Procedure(s) performed: HEART FAILURE CLASS 4 FL TIME: 3.8 MINS DOSE: 67 GYCM2 CONTRAST: 48 ML LHC, CORONARY ANGIOGRAPHY, RIGHT HEART CATH, IABP INSERTION HISTORY The patient is a 65 year-old male with a history of : coronary artery disease. INDICATION The indication(s) include : CARDIOGENIC SHOCK. [facility] Clinical Frailty Scale [facility] Clinical Frailty Scale: Severely Frail Heart Failure Heart Failure: Yes If Yes, Newly Diagnosed: No If Yes, HF Type: Diastolic Systolic CASE TECHNIQUE During this case, Fluoroscopy and low osmolar contrast were used for imaging. Specimen(s) Removed: N/ A Estimated Blood loss: 20 cc's. PROCEDURE NARRATIVE Clinical information: 65-year-old male presented to the hospital in the setting of respiratory distress. He was originally admitted to the hospital approximately 3 weeks ago in the setting of an inferior ST elevation [place] and Covid positive PCR testing. He underwent balloon angioplasty of his previous mid to distal RCA sten t successfully and after prolonged hospital course was able to be extubated and discharged home in st able condition. He was advised to follow-up with a tertiary Medical Center for advanced heart failur e therapy evaluation. The patient has a prior history of ischemic cardiomyopathy, dual-chamber ICD a nd otherwise was in normal neurologic health. After discharge to home it appears that he might of celis d some aspiration issues and/or arrhythmias which led to repeat admission to the hospital requiring r eintubation. After a second admission he was again appropriately managed and extubated successfully and was mentating well and off of vasopressor therapy. Unfortunately, he had recurrence of atrial fi brillation with RVR and had flash pulmonary edema. He required reintubation and presented [facility] for further evaluation of hemodynamics. Procedure details: Under 1% lidocaine local anesthesia a 6 Bahamian sheath was inserted in the right common femoral artery via the modified Seldinger technique. A 5 Bahamian venous sheath was inserted in the right common fem oral vein. A 4 Bahamian arterial sheath was inserted in the left common femoral artery. Diagnostic an giography was performed with a 6 Bahamian JL4 and JR4 catheters. Left ventricular end-diastolic pressu re was obtained with a JR4 catheter and a pullback was performed. A 5 Bahamian PA catheter was advance d to the right heart chambers and pressures and saturations were obtained. Findings: Aorta: 50/30 without vasopressor support, 90/60 on 0.8 mcg/kg/min of norepinephrine LVEDP 18 mmHg No aortic pullback gradient Right heart catheterization: RA 13/10 RV 38/8/11 PA 38//31 Wedge 20 mmHg FA saturation 98%, PA saturation 62% Chloé cardiac output 4.8 L/min and cardiac index of 2.2 Coronary angiography: Left main is a large-caliber vessel with a distal 20% stenosis LAD is a moderate to large caliber vessel with a proximal 100% occlusion at the site of a previously placed stent. The stent is overlapping and fashion extends into the first diagonal. The mid to dist al LAD is seen to fill via robust right to left collaterals. This is overall unchanged from his prev ious cardiac catheterization approximately 3 weeks ago Ramus is a moderate to large caliber vessel with a mild luminal irregularities of up to 30% Left circumflex is a small caliber nondominant vessel with a proximal 40 to 50% stenosis RCA is a large caliber dominant vessel with patent stents in the proximal and mid segment as well as the distal segments. There is a dual PDA system with early branching and proximal 40% stenosis. IABP insertion: Due to the patient's significant low cardiac output state requiring high dose of vasopressor therapy a decision was placed to insert a balloon pump. The left groin sheath was upsized to an 8 Bahamian she ath. Next a 7.5 Bahamian 50 cc intra-aortic balloon pump was advanced to the sheath and placed in the aorta distal to the left subclavian takeoff. One-to-one counterpulsation was initiated. All the she aths were sutured to the skin. The patient tolerated the procedure well and no acute complications are noted. Conclusion 1. Acute on chronic systolic and diastolic heart failure, LVEDP 18 mmHg 2. Secondary pulmonary hypertension, mean PA 31 mmHg 3. Cardiac shock on vasopressor therapy 4. Known severe two-vessel coronary artery disease unchanged from prior catheterization with patent RCA stents and chronic occlusion of the LAD. 5. Successful insertion of a 7.5 Bahamian 50 cc anterior to balloon pump via the left common femoral a rtery Recommendations 1. Continue amiodarone drip for recurrent atrial fibrillation which has led to recurrent episodes of flash pulmonary edema in the setting of cardiogenic shock 2. Continue antibiotics for presumed aspiration pneumonia 3. Continue rectal aspirin and heparin drip 4. Continue one-to-one IABP counterpulsation for cardiogenic shock 5. Case discussed with heart failure center for consideration of advanced heart failure therapies Signed by : Uri Spear, Electronically Approved : 07/14/2021 14:16:48
--- NOTE | 2021-07-14 14:25 | NUR ---
SS following up with discharge planning. SS reviewed pt chart and discussed with pt RN. Pt went to analyst microbiology lab today. Pt now on vent at 100%. Balloon pump in place. Pt on Fentanyl, Versed, Vec, and Amiodarone. Pt on IV Zyvox, IV Lasix, and IV Cefepime. COVID19 negative. Cardiology requesting transfer to for LVAD Evaluation. SS contacted transfer team, and made request for transfer. SS spoke with Luciana in the transfer team. SS faxed clinical and demographics to as requested. . SS currently awaiting acceptance decision. Packet, ambulance form, and transfer form on the chart. SS will continue to follow for discharge planning. Addendum: 07/14/21 at 1602 by AZUL KIDD SS Pt accepted at . Accepting Physician, Dr. Abreu. Currently awaiting bed assignment at this time. Pt's spouse agreeable to transfer. Addendum: 07/14/21 at 1642 by AZUL KIDD SS Bed# [id number]. Report# [id number]. Pt will discharge today and go to at 1700 via [facility] ambulance, . Pt's RN and pt's spouse notified.
[2021-07-14] MEDS: ENOXAPARIN 40 MG/0.4 ML SYRINGE. SQ SCH (15:35)
[2021-07-14 15:58] LABS: BASE EXCESS ABG -5 mmol/L (-3-3); HCO3 ABG 21 mmol/L (21-28); PCO2 ABG 41 mmHg (35-46); PO2 ABG 132 mmHg (65-108); SAT O2 ABG 98 % (92-99)
[2021-07-14 16:02] LABS: FIO2 ABG 100
--- NOTE | 2021-07-14 16:07 | EKG ---
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
--- NOTE | 2021-07-14 17:00 | NUR ---
Awaiting ambulance transport to . Called report to [employer]. Called pts and updated on pt status and plans to transport to . Pt's belongings: clothes, glasses, phone, and phone cullet washer with pt to .
[2021-07-14] MEDS ORDERED: DEXTROSE 50% 25 GM / 50ML DISP.SYRIN. IV ONE (17:30)
== END 2021-07-14 17:30 | disposition short-term general hospital (02) | DRG 270 ==
LOC: 1 WEST ICU 08:52
PROVIDERS: ADMIT Family Medicine; ATTEND Family Medicine
PROC: 5A1945Z Respiratory Ventilation, 24-96 Consecutive Hours (ICD-10-PCS; principal; 2021-07-10)
PROC: 0BH17EZ Insertion of Endotracheal Airway into Trachea, Via Natural or Artificial Opening (ICD-10-PCS; 2021-07-10)
PROC: 5A09357 Assistance with Respiratory Ventilation, Less than 24 Consecutive Hours, Continuous Positive Airway Pressure (ICD-10-PCS; 2021-07-13)
PROC: 5A1935Z Respiratory Ventilation, Less than 24 Consecutive Hours (ICD-10-PCS; 2021-07-13)
PROC: 5A02210 Assistance with Cardiac Output using Balloon Pump, Continuous (ICD-10-PCS; 2021-07-14)
PROC: B2111ZZ Fluoroscopy of Multiple Coronary Arteries using Low Osmolar Contrast (ICD-10-PCS; 2021-07-14)
PROC: B2151ZZ Fluoroscopy of Left Heart using Low Osmolar Contrast (ICD-10-PCS; 2021-07-14)
PROC: 4A023N8 Measurement of Cardiac Sampling and Pressure, Bilateral, Percutaneous Approach (ICD-10-PCS; 2021-07-14)
DX: I13.0 Hypertensive heart and chronic kidney disease with heart failure and stage 1 through stage 4 chronic kidney disease, or unspecified chronic kidney disease (principal); I50.43 Acute on chronic combined systolic (congestive) and diastolic (congestive) heart failure; A41.9 Sepsis, unspecified organism; J96.21 Acute and chronic respiratory failure with hypoxia; J18.9 Pneumonia, unspecified organism; J44.0 Chronic obstructive pulmonary disease with (acute) lower respiratory infection; N17.9 Acute kidney failure, unspecified; E11.22 Type 2 diabetes mellitus with diabetic chronic kidney disease; E11.65 Type 2 diabetes mellitus with hyperglycemia; E78.5 Hyperlipidemia, unspecified; I25.10 Atherosclerotic heart disease of native coronary artery without angina pectoris; I25.2 Old myocardial infarction; I25.5 Ischemic cardiomyopathy; I27.29 Other secondary pulmonary hypertension; I48.0 Paroxysmal atrial fibrillation; N18.9 Chronic kidney disease, unspecified; R13.10 Dysphagia, unspecified; Y95 Nosocomial condition; Z20.822 Contact with and (suspected) exposure to COVID-19; Z82.49 Family history of ischemic heart disease and other diseases of the circulatory system; Z86.74 Personal history of sudden cardiac arrest; Z95.5 Presence of coronary angioplasty implant and graft; Z95.810 Presence of automatic (implantable) cardiac defibrillator
CPT/HCPCS: 33967; 36415; 36600; 71045; 74018; 80048; 80053; 80076; 82805; 82962; 83036; 83735; 83880; 84145; 84484; 85007; 85025; 86140; 87070; 87205; 87641; 93005; 93460; 94002; 94003; 94660; C1773; C1894; C9113; J0282; J0330; J0692; J1160; J1250; J1644; J1650; J1815; J1940; J2020; J2060; J2250; J2370; J2405; J2704; J3010; J3490; J7030; J7060; P9045; Q9967; U0003; U0005; 92526-GN; 92610-GN; G0378